=== PATIENT | female | born 1955 | race African-American/Black ===

== ENCOUNTER 2019-10-19 01:27 | Inpatient (IN) | payer MEDICAID ==
[~2019-10-19] VITALS: Ht 165.1 cm; Wt 101.4 kg
[2019-10-19] VITALS (11 sets, daily range): BP systolic 129–167; BP diastolic 70–89; BMI 40.0
--- NOTE | ~2019-10-19 | HEMODYNAMI ---
PATIENT:MITCH BENNETT MEDICAL RECORD: [id number] : 59 LOCATION:[facility] D.2111 ADMISSION DATE: 10/19/19 Generatedon:10/25/201914:41 Patient name: MITCH BENNETT Patient #: [id number] SSN: : 1955 Date of study: 10/25/2019 Page: Of Hemodynamic Procedure Report Patient Data Patient Demographics Procedure consent was obtained First Name: MITCH Gender: Female Last Name: DONALD : 1955 Patient #: [id number] Age: 63 year(s) Race: Black Additional ID: [id number] Contact details Address: [facility] [address] State: [place] City: [place] Zip code: [address] Past Medical History Allergies Allergen Reaction Date Comments Reported Other allergy 10/20/2019 NAPROXEN/STRAWBERRY Other allergy 10/25/2019 NAPROXEN, STRAWBERRY Admission Admission Data Admission Date: 10/19/2019 Admission Time: 2:02 Arrival Date: 10/20/2019 Arrival Time: 0:00 Room #: D.2111 Height (in.): 64.96 BSA: 2.1 (m2) Height (cm.): 165 BMI: 38.2 (kg/m2) Weight (lbs.): 229.28 Weight (kg.): 104 Lab Results Lab Result Date: 10/25/2019 Lab Result Time: 0:00 Biochemistry Name Units Result Min Max BUN mg/dl 15 --(--*-)-- 7 18 Creatinine mg/dl 1 --(--*-)-- 0.6 1.3 eGFR ml/min 72 *-(----)-- 90 120 AM CBC Name Units Result Min Max Hematocrit % 36.2 *-(----)-- 42 54 Hemoglobin g/dl 10.7 *-(----)-- 13.5 17.5 Procedure Procedure Types Cath Procedure Diagnostic Procedure KAREN Procedure Description Procedure Date Procedure Date: 10/25/2019 Procedure Start Time: 13:42 Procedure Staff Name Function Juan Mayorga MD Performing Physician Thao Ramachandran RT Monitor Rio Copeland RN Nurse Elsa Rogers Sampler First Kirby Bryan CRNA Additional personnel Procedure Data Cath Procedure Fluoroscopy Diagnostic fluoroscopy Total fluoroscopy Time: 0 time: 0 min min Diagnostic fluoroscopy Total fluoroscopy dose: 0 dose: 0 mGy mGy Estimated blood loss: 0 ml Procedure Complications No complications Hemodynamics Rest BSA: 2.1 (m2) HGB: 10.7 (g/dl) O2 Consumption: Estimated: 225.05 (ml/min) O2 Consumption indexed: Estimated:107.17 (ml/min/m) Heart Rate: 103 (bpm) Snapshots Pre Cath Intra NCS Post Cath Vital Signs Time Heart Resp SPO2 etCO2 NIBP (mmHg) Rhythm Pain Sedation Rate (ipm) (%) (mmHg) Status Level (bpm) 14:08:43 103 10 100 0 Measuring NSR (Missing) 10(A) 14:10:07 102 12 100 0 Time NSR (Missing) 10(A) Exceeded 14:15:06 100 12 100 0 Measuring NSR (Missing) 10(A) 14:16:30 99 13 100 0 Time NSR (Missing) 10(A) Exceeded 14:20:54 100 15 100 0 Time NSR (Missing) 10(A) Exceeded 14:25:53 100 13 100 0 Measuring NSR (Missing) 10(A) 14:27:17 101 13 100 0 Time NSR (Missing) 10(A) Exceeded 14:31:13 101 15 100 0 166/95(133) NSR (Missing) 10(A) 14:35:29 99 32 100 0 156/92(120) NSR (Missing) 10(A) 14:39:43 91 24 100 0 152/96(117) NSR (Missing) 10(A) Procedure Log Time Note 13:42:31 Informed consent obtained and on chart 13:42:58 Patient Weight : 229.28 lbs 13:42:58 Patient Height : 64.96 inches 13:43:00 Procedure Status KAREN. 13:43:02 Time tracking: Regular hours (M-F 7:00 - 5:00) 13:43:05 Plan of Care:Hemodynamics will remain stable., Cardiac rhythm will remain stable., Comfort level will be maintained., Respiratory function will remain adequate., Patient/ family verbilizes understanding of procedure., Procedure tolerated without complication., Recovers from procedure without complications.. 13:43:08 Rio Copeland RN sent for patient. Start room use. 14:01:05 Patient arrived from Med II to CCL 3. Patient remains on bed/stretcher for procedure. 14:01:07 Warm blankets applied, and goldy hugger turned on for patient comfort. 14:01:07 Correct patient and procedure confirmed by team. 14:01:08 ECG and BP/O2 sat monitors applied to patient. 14:06:54 Vital chart was started 14:06:57 Baseline sample Acquired. 14:07:13 Rhythm: sinus tachycardia 14:07:15 Full Disclosure recording started 14:07:16 Pre-procedure instructions explained to patient. 14:07:17 Pre-op teaching completed and patient verbalized understanding. 14:07:18 Family unavailable. 14:07:19 Patient NPO since Midnight. 14:07:35 Patient allergic to Other allergyNAPROXEN, STRAWBERRY 14:07:36 Is patient on blood thinner?Yes 14:07:46 ACC The patient was administered the following blood thiners within the last 24 hours: ACCPlavix 14:07:49 Patient diabetic? Yes. 14:07:50 If diabetic: On Metformin? No 14:07:53 Patient not . Patient is over age 57. 14:08:07 Previous problem with sedation/anesthesia? No ? 14:08:08 Snore? Yes 14:08:09 Sleep apnea? No 14:08:10 Deviated septum? No 14:08:11 Opens mouth fully? Yes 14:08:12 Sticks out tongue? Yes 14:08:15 Airway obstruction? Yes COPD 14:08:17 Dentures? No ? 14:08:22 IV patent on arrival in left hand with 0.9% NaCl at [facility]. 14:11:15 Lab Result : BUN 15 mg/dl 14:11:15 Lab Result : Creatinine 1 mg/dl 14:11:15 Lab Result : eGFR AM 72 ml/min 14:11:15 Lab Result : Hemoglobin 10.7 g/dl 14:11:15 Lab Result : Hematocrit 36.2 % 14:11:20 Lab results completed and on chart. 14:11:27 Alarms reviewed by Elsa Mullen 14:20:02 Kirby Bryan CRNA present and monitoring patient for TIVA. 14:28:13 --------ALL STOP TIME OUT------ 14:28:14 Final Timeout: patient, procedure, and site verified with staff and physician. All members of the team are in agreement. 14:28:21 Physical assessment completed. ASA score P 3 - A patient with severe systemic disease as per Juan Mayorga MD. 14:28:25 Sedation plan: TIVA Medication:Propofol 14::27 KAREN 14:29:30 Elsa Rogers Quality Control Lab Tech present for KAREN. 14:29:41 KAREN started. 14:36:40 KAREN completed. 14:36:45 Procedure ended.(Physican Out) 14:37:12 Fluoroscopy time 00.00 minutes. 14:37:14 Fluoroscopy dose: 0 mGy 14:37:14 Flurop Dose total: 0 14:38:30 Dose Area Product 0 mGy/cm. 14:38:42 Post-procedure physical assessment completed. ASA score P 3 - A patient with severe systemic disease as per Juan Mayorga MD. 14:38:45 Post procedure rhythm: sinus rhythm 14:38:47 Estimated blood loss: 0 ml 14:38:49 Post procedure instruction explained to patient.Patient verbalizes understanding. 14:38:49 Patient needs reinforcement of post procedure teaching. 14:39:47 Procedure and supply charges have been captured, reviewed, submitted and are correct. 14:39:50 Procedure Complication : No complications 14:39:51 Vital chart was stopped 14:39:53 KAREN Findings: other (see operative note) 14:39:54 Operative report dictated upon procedure completion. 14:39:55 See physician's report for complete and final results. 14:39:58 Report given to Med II. 14:40:03 Patient transfered to Med II with Bed. 14:40:08 End room use (Document Last) 14:40:29 End room use (Document Last) 14:40:52 End room use (Document Last) Signature Audit [place] Stage Time Signature Unsigned Intra-Procedure 10/25/2019 Thao Ramachandran 2:40:29 PM RT(R) Intra-Procedure 10/25/2019 Rio Copeland 2:40:53 PM RN Intra-Procedure 10/25/2019 Juan Calhoun 2:41:21 PM Steve [facility] [address] [place] [address]
--- NOTE | ~2019-10-19 | HEMODYNAMI ---
PATIENT:MITCH BENNETT MEDICAL RECORD: [id number] : 59 LOCATION:[facility] D.2111 ADMISSION DATE: 10/19/19 Generatedon:10/20/20199:54 Patient name: MITCH BENNETT Patient #: [id number] SSN: DO B: 1955 Date of study: 10/20/2019 Page: Of Hemodynamic Procedure Report Patient Data Patient Demographics Procedure consent was obtained First Name: MITCH Gender: Female Last Name: DONALD : 1955 Patient #: [id number] Age: 63 year(s) Race: Black Additional ID: [id number] Contact details [facility] [address] State: [place] City: [place] Zip code: [address] Past Medical History Allergies Allergen Reaction Date Comments Reported Other allergy 10/20/2019 NAPROXEN/STRAWBERRY Admission Admission Data Admission Date: 10/19/2019 Admission Time: 2:02 Arrival Date: 10/20/2019 Arrival Time: 0:00 Room #: D.2111 Height (in.): 64.96 BSA: 2.17 (m2) Height (cm.): 165 BMI: 41.51 (kg/m2) Weight (lbs.): 249.12 Weight (kg.): 113 Lab Results Lab Result Date: 10/20/2019 Lab Result Time: 0:00 Biochemistry Name Units Result Min Max BUN mg/dl 23 --(----)-* 7 18 CK-MB ng/ml 2.3 --(--*-)-- 0 3.6 Creatinine mg/dl 1.5 --(----)-* 0.6 1.3 Creatinine l 110 --(-*--)-- 21 215 Kinase eGFR ml/min 45 *-(----)-- 90 120 AM Troponin l ng/ml 0.309 --(----)-* 0 0.06 CBC Name Units Result Min Max Hematocrit % 36 *-(----)-- 42 54 Hemoglobin g/dl 10.5 *-(----)-- 13.5 17.5 Procedure Procedure Types Cath Procedure Diagnostic Procedure [facility] w/Coronaries Sedation Charges Moderate Sedation up to 30 minutes Procedure Description Procedure Date Procedure Date: 10/20/2019 Procedure Start Time: 9:34 Procedure End Time: 9:51 Procedure Staff Name Function Carlos Shields MD Performing Physician Rama Scott RT Monitor Lima Gunter RT Scrub Manjit Silva RN Nurse Procedure Data Cath Procedure Fluoroscopy Diagnostic fluoroscopy Total fluoroscopy Time: 2.1 time: 2.1 min min Diagnostic fluoroscopy Total fluoroscopy dose: 701 dose: 701 mGy mGy Contrast Material Contrast Material Type Amount (ml) Isovue 300 40 Entry Location Entry Primary Successful Side Size Upsize Upsize Entry Closure Succes sful Closure Location (Fr) 1 (Fr) 2 (Fr) Remarks Device Remarks Femoral Right 5 Fr Exoseal artery Estimated blood loss: 5 ml Diagnostic catheters Device Type Used For End Catheter Placement MULTIPACK JL 4.0 5Fr Left Coronary catheter Angiography MULTIPACK 3DRC 5Fr Right Coronary catheter Angiography MULTIPACK Pigtail 5 Fr LV Angiography catheter Procedure Complications No complications Procedure Medications Medication Administration Route Dosage 0.9% NaCl I.V. 100 ml/hr Oxygen etCO2 Nasal cannula 2 l/min Heparin Flush Bag added to field 2 bags (1000units/500ml NS) Lidocaine 2% added to field 20 Versed I.V. 1 mg Fentanyl I.V. 25 mcg Hemodynamics Rest BSA: 2.17 (m2) HGB: 10.5 (g/dl) O2 Consumption: Estimated: 212.67 (ml/min) O2 Co nsumption indexed: Estimated:98 (ml/min/m) Heart Rate: 79 (bpm) Pressure Samples Time Site Value (mmHg) Purpose Heart Use Rate(bpm) 9:44 LV 152/6,31 Snapshot 80 Gradients Valve Time Site Site Mean SEP/DFP Peak To Heart Use 1 2 (mmHg) (sec/min) Peak Rate (mmHg) (bpm) Aortic 9:45 LV AO 77 Snapshots Pre Cath Intra NCS Post Cath Vital Signs Time Heart Resp SPO2 etCO2 NIBP (mmHg) Rhythm Pain Sedation Rate (ipm) (%) (mmHg) Status Level (bpm) 9:19:18 80 14 100 39.1 143/89(121) NSR 0 (11) 10(A) , No pain 9:23:34 79 15 100 36.8 142/83(111) NSR 0 (11) 10(A) , No pain 9:27:48 79 17 100 36.8 142/86(119) NSR 0 (11) 10(A) , No pain 9:32:00 80 12 100 28.5 145/91(123) NSR 0 (11) 10(A) , No pain 9:36:14 79 14 100 36.8 145/88(114) NSR 0 (11) 9(A) , No pain 9:40:30 77 12 100 38.3 142/84(128) NSR 0 (11) 9(A) , No pain 9:45:45 78 13 100 39.1 136/80(116) NSR 0 (11) 10(A) , No pain 9:49:59 77 8 100 39.1 137/92(116) NSR 0 (11) 10(A) , No pain Medications Time Medication Route Dose Verified Delivered Reason Notes Effe ctiveness by by 9:21:23 0.9% NaCl I.V. 100 Manjit Manjit Per ml/hr Ricardo Silva physician RN RN 9:21:31 Oxygen etCO2 2 Manjit Manjit for low 02 Nasal l/min Lorigan Lorigan sats cannula RN RN 9:21:41 Heparin Flush added 2 Manjit Manjit used for Bag to bags Lorigan Lorigan procedure (1000units/500ml field RN RN NS) 9:21:51 Lidocaine 2% added 20ml Manjit Manjit for local to vial Lorigan Lorigan anesthetic field RN RN 9:31:23 Versed I.V. 1 mg Manjit Manjit for Lorigan Lorigan sedation RN RN 9:31:32 Fentanyl I.V. 25 Manjit Manjit for mcg Lorigan Lorigan sedation RN market research assistant Log Time Note 7:48:20 Informed consent obtained and on chart 8:00:11 Procedure Status Urgent Heart Cath (IP). 8:00:16 Time tracking: Regular hours (M-F 7:00 - 5:00) 8:01:58 Lab Result : CK-MB 2.3 ng/ml 8:01:58 Lab Result : Creatinine 1.5 mg/dl 8:01:58 Lab Result : BUN 23 mg/dl 8:58 Lab Result : Hemoglobin 10.5 g/dl 8:58 Lab Result : Hematocrit 36 % 8:58 Lab Result : eGFR AM 45 ml/min 8:58 Lab Result : Creatinine Kinase 110 l 8:58 Lab Result : Troponin l 0.309 ng/ml 8:04:19 Patient Height : 64.96 inches 8:04:24 Patient Weight : 249.12 lbs 8:04:38 Arrival Date: 10/20/2019 12:00:00 AM 8:09:57 Risk of Mortality: 1.1 8:10:02 Risk of blood transfusion: 7.7 8:10:09 Risk of MARYANN: 3.6 8:10:15 Lab results completed and on chart. 8:26:33 Patient allergic to Other allergyNAPROXEN/STRAWBERRY 8:55:33 Manjit Silva RN sent for patient. Start room use. 8:55:42 Plan of Care:Hemodynamics will remain stable., Cardiac rhythm will remain stable., Comfort level will be maintained., Respiratory function will remain adequate., Patient/ family verbilizes understanding of procedure., Procedure tolerated without complication., Recovers from procedure without complications.. 9:17:23 Patient received from Med II to CCL 1 Alert and oriented. Tansferred to table in Supine position. 9:17:24 Warm blankets applied, and goldy hugger turned on for patient comfort. 9:17:25 Correct patient and procedure confirmed by team. 9:17:27 ECG and BP/O2 sat monitors applied to patient. 9:17:33 H&P Date Dictated: 10/19/2019 ER History on chart.. 9:17:42 Pre-procedure instructions explained to patient. 9:17:43 Pre-op teaching completed and patient verbalized understanding. 9:17:47 Is patient on blood thinner?Yes 9:17:49 ACC The patient was administered the following blood thiners within the last 24 hours: ACCPlavix 9:17:50 Patient diabetic? No. 9:17:53 Patient not . Patient is over age 57. 9:17:59 Patient NPO since Midnight. 9:18:04 Family unavailable. 9:18:09 Previous problem with sedation/anesthesia? No ? 9:18:10 Snore? Yes 9:18:11 Vital chart was started 9:18:12 Sleep apnea? No 9:18:14 Deviated septum? No 9:18:15 Opens mouth fully? Yes 9:18:16 Sticks out tongue? Yes 9:18:19 Airway obstruction? Yes COPD 9:18:27 Dentures? No OUT 9:18:40 Pre procedure: right dorsailis pedis pulse 1+ Palpable, but thready & weak; easily obliterated 9:18:53 IV patent on arrival in right antecubital with 0.9% NaCl at [facility]. 9:18:57 Right Radial & Right Groin area was prepped with chlora-prep and draped in sterile fashion 9:18:59 Alarms reviewed by RSanjay N. 9:19:00 Sharps counted by scrub and verified by RSanjayN. 9:20:20 Full Disclosure recording started 9:20:28 Rhythm: sinus rhythm 9:21:23 0.9% NaCl 100 ml/hr I.V. was administered by Manjit Silva RN; Per physician; Verbal order read back and verified. 9:21:31 Oxygen 2 l/min etCO2 Nasal cannula was administered by Manjit Silva RN; for low 02 sats; Verbal order read back and verified. 9:21:41 Heparin Flush Bag (1000units/500ml NS) 2 bags added to field was administered by Manjit Silva RN; used for procedure; Verbal order read back and verified. 9:21:51 Lidocaine 2% 20ml vial added to field was administered by Manjit Silva RN; for local anesthetic; Verbal order read back and verified. 9:26:29 Baseline sample Acquired. 9:27:03 Use device set Radial Dx or PCI 9:27:05 ACIST Syringe (60206) opened to sterile field. 9:27:06 Medline Cath Pack ([id number]) opened to sterile field. 9:27:07 Bag Decanter (2002) opened to sterile field. 9:27:08 ACIST Hand Control (22538) opened to sterile field. 9:27:09 ACIST Manifold (83948) opened to sterile field. 9:27:10 Tegaderm 4 x 4 (1626W) opened to sterile field. 9:27:11 MBrace Wrist Support ([id number]) opened to sterile field. 9:27:14 EMERALD Guide Wire (847-648) opened to sterile field. 9:27:15 SHEATH 6FR RAIN ([id number]) opened to sterile field. 9:30:29 Physician arrived 9:30:30 --------ALL STOP TIME OUT------ 9:30:34 Final Timeout: patient, procedure, and site verified with staff and physician. All members of the team are in agreement. 9:30:37 Right Radial & Right Groin site verified by team. 9:30:42 Fire Safety Assessment: A--An alcohol-based skin anteseptic being used preoperatively., C--Open oxygen or nitrous oxide is being used., D--An ESU, laser, or fiber-optic light is being used. 9:30:47 Physical assessment completed. ASA score P 2 - A patient with mild systemic disease as per Carlos Shields MD. 9:30:52 3a) 45-59 Moderately reduced kidney function. 9:30:57 Maximum allowable contrast dose (3.7 X eGFR X 0.75)125 ml. 9:31:03 Sedation plan: IV Moderate Sedation Medication:Versed, Fentanyl 9:31:23 Versed 1 mg I.V. was administered by Manjit Silva RN; for sedation; Verbal order read back and verified. 9:31:32 Fentanyl 25 mcg I.V. was administered by Manjit Silva RN; for sedation; Verbal order read back and verified. 9:31:34 Zero performed for pressure channel P1 9:33:24 Procedure started. 9:34:21 Local anesthetic to right femoral artery with Lidocaine 2% by Carlos Shields MD.INITIAL ACCESS ONLY 9:34:34 SHEATH 5FR [place] ([id number]) opened to sterile field. 9:35:46 Use device set Multipack Set 9:35:50 DIAGNOSTIC Multipack 5Fr catheter set ([id number]) opened to sterile field. 9:36:41 MICROPUNCTURE 4FR Cook ([id number]) opened to sterile field. 9:36:57 Access obtained with 4Fr micropunture. 9:37:58 A 5 Fr sheath was inserted into the Right Femoral artery 9:38:12 A MULTIPACK JL 4.0 5Fr catheter was advanced over the wire and used for Left Coronary Angiography. 9:38:55 LCA angiography performed. 9:39:03 Injector settings: Ml/sec: 3, Volume: 6, 9:40:29 Catheter removed. 9:40:40 A MULTIPACK 3DRC 5Fr catheter was advanced over the wire and used for Right Coronary Angiography. 9:40:45 Injector settings: Ml/sec: 3, Volume: 6, 9:41:14 RCA angiography performed. 9:42:27 Catheter removed. 9:42:42 A MULTIPACK Pigtail 5 Fr catheter was advanced over the wire and used for LV Angiography. 9:43:26 LV gram done using FROST 9:43:38 Injector settings: Ml/sec: 12, Volume: 8, 9:44:27 LV hemodynamics recorded. 9:45:13 EF : 40 % 9:45:19 Catheter removed. 9:45:35 EXOSEAL 5Fr (EX500) opened to sterile field. 9:46:29 Sheath removed intact; hemostasis achieved with Exoseal to the Right Femoral artery. 9:46:35 Procedure ended.(Physican Out) 9:46:44 Contrast amount:Isovue 300 40ml. 9:46:55 Maximum allowable dose exceeded? No. 9:46:57 Sharps counted by scrub and verified by R.N. 9:47:07 Fluoroscopy time 02.10 minutes. 9:47:17 Fluoroscopy dose: 701 mGy 9:47:17 Flurop Dose total: 701 9:47:29 Dose Area Product 93569 mGy/cm. 9:47:40 Post-op/insertion site Right Femoral artery dressed using a 4 x 4 and Tegaderm. 9:47:54 Post right femoral artery:stable 9:48:01 Post-procedure physical assessment completed. ASA score P 2 - A patient with mild systemic disease as per Carlos Shields MD. 9:48:06 Post procedure rhythm: unchanged. 9:48:11 Estimated blood loss: 5 ml 9:48:15 Post procedure instruction explained to patient.Patient verbalizes understanding. 9:48:15 Patient needs reinforcement of post procedure teaching. 9:49:04 Procedure type changed to Cath procedure, Diagnostic procedure, LHC, LHC w/Coronaries, Sedation Charges, Moderate Sedation up to 30 minutes 9:49:07 Procedure and supply charges have been captured, reviewed, submitted and are correct. 9:50:59 Procedure Complication : No complications 9:51:02 Vital chart was stopped 9:51:16 [facility] Findings: MVD- CABG consult 9:51:21 Operative report dictated upon procedure completion. 9:51:22 See physician's report for complete and final results. 9:51:25 Report given to [facility] II. 9:51:31 Patient transfered to [facility] II with Bed. 9:51:35 Procedure ended. 9:51:35 Full Disclosure recording stopped Device Usage Item Name Manufacture Quantity Catalog Hospital Part Current Mini mal Lot# / Number Charge Number Stock Stock Serial# Code ACIST Syringe Acist 1 07418 566145 [id number] [id number] 20 (55847) Medical Systems Inc Medline Cath Medline 1 [id number] 318336 58841 290877 5 Pack ([id number]) Bag Decanter Microtek 1 2001S 867657 48776 897578 5 (2001S) Medical Inc. ACIST Hand Acist 1 91386 250708 904065 696965 5 Control Medical (09073) Systems Inc ACIST Acist 1 67091 758858 472002 284086 5 Manifold Medical (26105) Systems Inc Tegaderm 4 x 3M 1 1626W 278431 392141 939404 5 4 (1626W) MBrace Wrist Advanced 1 140-0250-00 352016 68448 489267 5 Support Vascular ([id number]) Dynamics EMERALD Guide Cardinal 1 502-455 383300 435150 361854 5 [facility] (502-455) SHEATH 6FR Cardinal 1 0999622 164389 6864758 928621 5 [facility] (7177213) SHEATH 5FR Terumo 1 HEL545 329248 770784 341317 5 [place] (PCQ438) DIAGNOSTIC Cardinal 1 IR8050 176869 20189 006242 30 Multipack 5Fr Health catheter set (EU4542) MICROPUNCTURE Cook Medical 1 Q76501 861642 990602 389381 5 4FR Cook (B85429) MULTIPACK JL Cardinal 1 703816 5 4.0 5Fr Health catheter MULTIPACK Cardinal 1 773539 5 3DRC 5Fr Health catheter MULTIPACK Cardinal 1 105737 5 Pigtail 5 Fr Health catheter EXOSEAL 5Fr Cardinal 1 EX500 696165 505687 943893 10 (EX500) Health Signature Audit [place] Stage Time Signature Unsigned Intra-Procedure 10/20/2019 Rama 9:52:05 AM Tyler RT(R) (CV) Intra-Procedure 10/20/2019 Manjit 9:52:46 AM Ricardo RN Intra-Procedure 10/20/2019 Carlos Shields MD 9:54:12 AM Signatures Performing Physician : Signature : Carlos Shields MD Date : Time : Monitor : Rama Signature : Tyler RT Date : Time : Nurse : Manjit Silva Signature : RN Date : Time : [address] [place] [address]
--- NOTE | 2019-10-19 01:42 | NUR ---
FSBS 156
[2019-10-19 01:54] LABS: BASOPHILS 0.2 % (0-2); EOSINOPHILS 0.2 % (0-7); HEMOGLOBIN 10.5 g/dL (12-16); IMMATURE GRANULOCYTES 0.2 % (0-5); LYMPHOCYTES 15.8 % (15-50); MCH 26.9 pg (26.0-34.0); MCHC 29.2 g/dL (31.0-37.0); MCV 92.3 fL (80.0-100.0); MONOCYTES 11.3 % (2-11); NEUTROPHILS 72.3 % (40-80); PLATELET COUNT 217 10x3/uL (130-400); RDW 15.6 % (11.5-14.5); WBC 4.7 10x3/uL (4.8-10.8)
[2019-10-19 02:08] LABS: APTT 28.7 SECONDS (22.8-39.4); INR 1.22 (0.85-1.17); PROTIME 15.4 SECONDS (11.6-15.0)
[2019-10-19 02:19] LABS: CALC OSMOLALITY 282 mosm/kg (275-300); CALCIUM 8.9 mg/dL (8.5-10.1); CARBON DIOXIDE 27.3 mmol/L (21.0-32.0); CHLORIDE - SERUM 101 mmol/L (98-107); CREATININE - SERUM 1.5 mg/dL (0.6-1.3); GLUCOSE 153 mg/dL (74-106); POTASSIUM - SERUM 4.6 mmol/L (3.5-5.1); SODIUM 138 mmol/L (136-145); UREA NITROGEN 23 mg/dL (7-18); eGFR NON AFRICAN AMERICAN 37 mL/min (90-120)
[2019-10-19 02:40] LABS: ALBUMIN 3.5 g/dL (3.4-5.0); ALKALINE PHOSPHATASE 166 U/L (30-120); ALT (SGPT) 44 U/L (10-68); BILIRUBIN - TOTAL 0.55 mg/dL (0.2-1.3); CKMB 2.3 U/L (0.0-3.6); CREATINE KINASE 110 UL (21-215); PRO BNP 5138 pg/mL (0-125); PROTEIN - SERUM 6.9 g/dL (6.4-8.2)
[2019-10-19 02:43] LABS: TROPONIN-I 0.309 ng/mL (0.000-0.060)
--- NOTE | 2019-10-19 03:31 | NUR ---
RESTING WITH EYES CLOSED RESP EVEN AND UNLABORED. DENIES ANY CHEST PAIN SINCE ARRIVAL
--- NOTE | 2019-10-19 07:09 | NUR ---
ASSUMED CARE OF PT. A/OX3. SKIN W/D/P. DENIES CP. RESP EVEN/UNLABORED.
--- NOTE | 2019-10-19 07:10 | NUR ---
WHILE ASSESSING PT PT REPORTED "SOMEONE TOOL $50 OUT OF MY PURSE BEFORE I GOT HERE. I THINK IT WAS THE AMBULANCE PEOPLE" PURSE LYING IN BED NEXT TO PT. I ASKED PT IF SHE REPORTED INCIDNET AND SHE REPLIED "NO" OFFERED TO CALL [facility] AND EMS AND REPORT AND SHE STATES "NO, I JUST KNOW SOMEONE TOOK IT"
--- NOTE | 2019-10-19 07:15 | NUR ---
VUMH=438 MG/DL
[2019-10-19 10:00] LABS: CKMB 2.4 U/L (0.0-3.6); CREATINE KINASE 109 UL (21-215)
[2019-10-19 10:05] LABS: TROPONIN-I 0.253 ng/mL (0.000-0.060)
--- NOTE | 2019-10-19 10:15 | NUR ---
THIS RN ENTERS PT ROOM TO TRANSPORT TO FLOOR FOR ADMISSION, PT STATES SHE HAS $50 MISSING FROM HER HOUSE. STATES SHE IS CONVINCED THAT EMS STOLE HER $50. PT THEN ASKS THIS RN TO PLACE HER GLASSES AND PHONE IN HER PURSE. THIS NURSE DECLINES AND OFFERS TO HAND PT HER PURSE FOR HER TO PLACE ITEMS IN. PT STATES SHE JUST WANTS THIS RN TO PLACE HER PHONE AND GLASSES IN HER PURSE. THIS RN HANDS PT HER PURSE FOR PT TO PLACE ITEMS IN. PT EXPRESSES GRATITUDE.
[2019-10-19] MEDS ORDERED: LASIX40 MG PO (10:40)
[2019-10-19] MEDS ORDERED: POTASSIUM CHLO10 ME1 PO (10:41)
[2019-10-19] MEDS ORDERED: LIPITOR20 MG PO (10:41)
[2019-10-19] MEDS ORDERED: HYDROCODON-ACE1 EA10 PO (10:42)
[2019-10-19] MEDS ORDERED: LEVEMIR FL100 UNIT/1 SC (10:42)
[2019-10-19] MEDS ORDERED: COZAAR50 MG PO (10:43)
[2019-10-19] MEDS ORDERED: PLAVIX75 MG PO (10:43)
[2019-10-19] MEDS ORDERED: KEFLEX500 MG PO (10:44)
[2019-10-19] MEDS ORDERED: CYCLOBENZAPRINE10 MG PO (10:44)
[2019-10-19] MEDS ORDERED: HUMULIN N100 U/ML (10:46)
--- NOTE | 2019-10-19 10:47 | NUR ---
PT STATES SHE DOESN'T KNOW WHAT ALL MEDS SHE TAKES BUT TO CALL [facility] IN [place]. CALLED AND SPOKE WITH PHARMACY AND GOT PT'S MED LIST OVER THE PHONE. PT STATES SHE HASN'T BEEN ABLE TO TAKE ANY MEDICATIONS IN FIVE DAYS BECAUSE SHE HAS BEEN SO SICK. I VERBALIZED UNDERSTANDING. 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 CONSULT FOR DR. GIVOANNI HALL.
[2019-10-19 14:34] LABS: CKMB 2.6 U/L (0.0-3.6); CREATINE KINASE 112 UL (21-215)
[2019-10-19 14:36] LABS: TROPONIN-I 0.242 ng/mL (0.000-0.060)
--- NOTE | 2019-10-19 17:00 | NUR ---
HEART CATH CONSENTS SIGNED.
--- NOTE | 2019-10-19 18:50 | NUR ---
SCD'S PLACED BILATERLLY ON PT'S LEGS.
--- NOTE | 2019-10-19 19:00 | NUR ---
REPORT RECEIVED, WILL CONTINUE POC. PATIENT IS AAOX4, SITTING UP EATING DINNER. NO S/S OF DISTRESS OBSERVED, RR EVEN AND UNLABORED ON 2L O2 VIA NC. PATIENT DENIES NEEDS AT THIS TIME. CL IN REACH, BED LOCKED AND LOWERED. WILL CTM.
[2019-10-19 20:39] LABS: CKMB 2.4 U/L (0.0-3.6); CREATINE KINASE 115 UL (21-215)
[2019-10-19 20:41] LABS: TROPONIN-I 0.185 ng/mL (0.000-0.060)
[2019-10-20] VITALS: BP 128/66
--- NOTE | 2019-10-20 03:53 | NUR ---
I have reviewed this patient and I concur with the Shift Assessment completed by the Licensed Practical Nurse today this shift.
[2019-10-20 04:00] VITALS: BP 134/72
[2019-10-20 08:11] LABS: BASOPHILS 0.5 % (0-2); EOSINOPHILS 2.1 % (0-7); HEMOGLOBIN 10.5 g/dL (12-16); LYMPHOCYTES 24.7 % (15-50); MCH 26.9 pg (26.0-34.0); MCHC 29.2 g/dL (31.0-37.0); MCV 92.1 fL (80.0-100.0); MEAN PLATELET VOLUME 9.7 fL (7.4-10.4); MONOCYTES 12.4 % (2-11); NEUTROPHILS 60.3 % (40-80); PLATELET COUNT 199 10x3/uL (130-400); RBC 3.91 10x6/uL (4.00-5.40); RDW 15.9 % (11.5-14.5); WBC 3.9 10x3/uL (4.8-10.8)
[2019-10-20 08:43] LABS: ALBUMIN 3.2 g/dL (3.4-5.0); ANION GAP 13.3 mmol/L (8-16); BILIRUBIN - TOTAL 0.44 mg/dL (0.2-1.3); CALCIUM 8.7 mg/dL (8.5-10.1); CARBON DIOXIDE 27.1 mmol/L (21.0-32.0); CREATININE - SERUM 1.8 mg/dL (0.6-1.3); MAGNESIUM - SERUM 2.1 mg/dL (1.8-2.4); POTASSIUM - SERUM 4.4 mmol/L (3.5-5.1); PROTEIN - SERUM 6.5 g/dL (6.4-8.2)
[2019-10-20 09:00] VITALS: BP 142/79
[2019-10-20 11:00] VITALS: BP 153/61
[2019-10-20 13:13] VITALS: BMI 41.4
--- NOTE | 2019-10-20 19:11 | NUR ---
REPORT RECEIVED AND ROUNDING COMPLETE. PATIENT LAYING IN LOW FOWLERS POSITION, PATIENT WORRIED ABOUT OPEN HEART SURGERY, DAY NURSE UNAWARE, WILL READ INTO CHART. RIGHT WRIST PIV THAT IS SALINE LOCKED AT THIS TIME, CATH TO THE RIGHT GROIN TODAY, DRESSWING C/D/I. PATIENT STATES SHE HAS NO NEEDS AT THIS TIME. CALL LIGHT WITHIN REACH AND BED IN LOWEST LOCKED POSITION. NO DISTRESS NOTED AT THIS TIME.
[2019-10-20 20:00] VITALS: BP 123/66
[2019-10-21] VITALS: BP 147/68
[2019-10-21 04:00] VITALS: BP 138/60
[2019-10-21 06:54] LABS: BASOPHILS 0.2 % (0-2); EOSINOPHILS 2.4 % (0-7); HEMATOCRIT 33.7 % (36.0-48.0); HEMOGLOBIN 10.1 g/dL (12-16); MCH 27.5 pg (26.0-34.0); MCV 91.8 fL (80.0-100.0); MEAN PLATELET VOLUME 9.9 fL (7.4-10.4); NEUTROPHILS 74.4 % (40-80); PLATELET COUNT 220 10x3/uL (130-400); RBC 3.67 10x6/uL (4.00-5.40); RDW 15.7 % (11.5-14.5); WBC 4.9 10x3/uL (4.8-10.8)
[2019-10-21 07:33] LABS: ALBUMIN 3.1 g/dL (3.4-5.0); ANION GAP 8.5 mmol/L (8-16); BILIRUBIN - TOTAL 0.39 mg/dL (0.2-1.3); CALCIUM 8.3 mg/dL (8.5-10.1); CARBON DIOXIDE 30.4 mmol/L (21.0-32.0); CREATININE - SERUM 1.4 mg/dL (0.6-1.3); POTASSIUM - SERUM 3.9 mmol/L (3.5-5.1); PROTEIN - SERUM 6.3 g/dL (6.4-8.2)
[2019-10-21 08:00] VITALS: BP 131/73
--- NOTE | 2019-10-21 09:52 | EC ---
PATIENT:MITCH BENNETT DATE OF SERVICE: 10/19/19 SEX: F MEDICAL RECORD: [id number] DATE OF : 59 LOCATION:D.M2 D.211 AGE OF PATIENT: 63 ADMISSION DATE: 10/19/19 REFERRING PHYSICIAN: INTERPRETING PHYSICIAN: ARTEMIO MEADOWS MD ECHOCARDIOGRAM REPORT ECHO CHARGES 4 ECHO COMPLETE Date: 10/19/19 CLINICAL DIAGNOSIS: DYSPNEA ECHOCARDIOGRAPHIC MEASUREMENTS (adult normal given) AC root (d.<3.7cm) 2.8 cm LV Septum d (<1.2 cm> 0.7 cm Valve Excursion 1.8 cm LV Septum (systole) 0.9 cm Left Atria (s.<4.0cm> 4.3 cm LVPW d(<1.2cm) 1.1 cm RV (d.<2.3cm) 3.1 cm LVPW (sytole) 1.2 cm LV diastole(<5.6CM) 5.6 cm MV E-F(>70mm/sec) cm LV systole 4.9 cm LVOT Diameter 1.6 cm MV exc.(>10mm) cm Est.ejection fraction (50-75%) % DOPPLER: LVIT cm/sec A 44 cm/sec E 114 cm/sec LA cm/sec RVSP 43.6 mmHg LVOT 78 cm/sec AOP1/2T m/s Asc. Ao 113 cm/sec RVOT 58 cm/sec RA cm/sec PA 78 cm/sec AV Gradient Peak 5.1 mmHg AV Mean 3.0 mmHg AV Area 1.6 cm MV Gradient Peak 7.0 mmHg MV Mean 3.1 mmHg MV Area cm COMMENTS: Senior It Specialist: Christoph BOURGEOIS Bobbin Handler: 3 Dr. Elena TAPE# Pericardial Effusion N DATE OF SERVICE: PROCEDURE: Transthoracic echocardiogram. FINDINGS: 1. The left ventricle shows a dilated left ventricle, ejection fraction of 25% to 30%. 2. The left atrium is afotetkh-vq-iazoprne dilated. 3. The aortic valve appears to be grossly normal. 4. The mitral valve has at least moderate regurgitation, but was not well ECHOCARDIOGRAM REPORT [id number] MITCH BENNETT demonstrated. 5. The right ventricular systolic pressure is elevated at 50 mmHg. 6. The right ventricle is dilated with mild hypokinesis. 7. The right atrium is severely dilated. 8. The pulmonic valve is grossly normal, but not well visualized. TRANSINT:[id number] Voice Confirmation ID: [id number] DOCUMENT ID: [id number] ARTEMIO MEADOWS MD at 0952 CC: [id number] DICTATION DATE: 10/20/19 0742 REVIEW SPECIALIST: 10/20/19 0853 ADM IN [facility] [address] [id number]
[2019-10-21 11:00] VITALS: BP 148/73
[2019-10-21 15:00] VITALS: BP 144/56; Ht 165.1 cm; Wt 101.4 kg
--- NOTE | 2019-10-21 19:09 | NUR ---
REPORT RECEIVED AND ROUNDING COMPLETE. PATIENT LAYING IN BED ON LEFT SIDE, EASILY AROUSED WHEN ENTERING ROOM. LEILA NOT WEARING NASAL CANNULA AT THIS TIME, LEILA STATES THAT SHE HAS NO NEEDS. LEFT FOREARM PIV THAT IS SALINE LOCKED. LEILA COMPLAINS OF MILD DISCOMFORT IN RIGHT GREAT TOE, THIS TOE IS AMPUTATED, WHEN TREAT PER MAR REQUESTED WIHT NIGHT TIME MEDICATIONS. NO S/SX OF DISTRESS AT THIS TIME. CALL LIGHT WITHIN REACH AND BED IN LOWEST LOCKED POSITION.
[2019-10-21 20:54] VITALS: BP 153/72
[2019-10-22 00:48] VITALS: BP 170/90
[2019-10-22 04:46] VITALS: BP 142/74
[2019-10-22 05:13] LABS: BASOPHILS 0.3 % (0-2); EOSINOPHILS 3.7 % (0-7); HEMATOCRIT 35.1 % (36.0-48.0); HEMOGLOBIN 10.3 g/dL (12-16); LYMPHOCYTES 26.9 % (15-50); MCHC 29.3 g/dL (31.0-37.0); MCV 91.9 fL (80.0-100.0); MEAN PLATELET VOLUME 9.3 fL (7.4-10.4); MONOCYTES 19.5 % (2-11); NEUTROPHILS 49.6 % (40-80); PLATELET COUNT 178 10x3/uL (130-400); RBC 3.82 10x6/uL (4.00-5.40); RDW 15.5 % (11.5-14.5)
[2019-10-22 05:17] LABS: WBC 3.5 10x3/uL (4.8-10.8)
[2019-10-22 05:26] LABS: ALBUMIN 2.8 g/dL (3.4-5.0); ANION GAP 7.8 mmol/L (8-16); BILIRUBIN - TOTAL 0.32 mg/dL (0.2-1.3); CALCIUM 8.4 mg/dL (8.5-10.1); CARBON DIOXIDE 31.1 mmol/L (21.0-32.0); POTASSIUM - SERUM 3.9 mmol/L (3.5-5.1); PROTEIN - SERUM 6.4 g/dL (6.4-8.2)
--- NOTE | 2019-10-22 10:22 | NUR ---
PT ALERT X 4. BREATH SOUNDS DIMINISHED TO ALL GUY. IV TO LEFT WRIST SALINE LOCKED. BOWEL SOUNDS HYPOACTIVE TO ALL GUY. PT REPORTING PAIN OF 6/10, WILL CONTINUE TO MONITOR. RIGHT GREAT TOE AMPUTATED, 2ND TOE HAS SORE ON IT. BED LOW, CALL LIGHT IN REACH. NO OTHER NEEDS AT THIS TIME
[2019-10-22 10:58] VITALS: BP 116/57
[2019-10-22 15:27] VITALS: BP 144/80
--- NOTE | 2019-10-22 19:53 | NUR ---
REPORT RECEIVED AND ROUNDING COMPLETE. PATIENT SITTING ON THE SIDE OF HER BED, STATES SHE IS FEELING A LITTLE BETTER TODAY AFTER HER SHOWERS. PATIENT IS TALKING ON HER CELL PHONE. NO DISTRESS NOTED AT THIS TIME. CALL LIGHT WITHIN REACH.
[2019-10-22 20:47] VITALS: BP 132/66
[2019-10-23 04:30] VITALS: BP 135/74
[2019-10-23 05:59] LABS: BASOPHILS 0.3 % (0-2); HEMATOCRIT 37.5 % (36.0-48.0); HEMOGLOBIN 11.1 g/dL (12-16); LYMPHOCYTES 30.2 % (15-50); MCH 27.2 pg (26.0-34.0); MCHC 29.6 g/dL (31.0-37.0); MCV 91.9 fL (80.0-100.0); MEAN PLATELET VOLUME 9.8 fL (7.4-10.4); MONOCYTES 15.8 % (2-11); NEUTROPHILS 49.7 % (40-80); RBC 4.08 10x6/uL (4.00-5.40); RDW 15.2 % (11.5-14.5); WBC 3.5 10x3/uL (4.8-10.8)
[2019-10-23 06:19] LABS: PLATELET COUNT 218 10x3/uL (130-400)
[2019-10-23 06:33] LABS: ALBUMIN 2.9 g/dL (3.4-5.0); ANION GAP 6.5 mmol/L (8-16); BILIRUBIN - TOTAL 0.4 mg/dL (0.2-1.3); CALCIUM 8.7 mg/dL (8.5-10.1); CARBON DIOXIDE 31.4 mmol/L (21.0-32.0); CREATININE - SERUM 1.1 mg/dL (0.6-1.3); POTASSIUM - SERUM 3.9 mmol/L (3.5-5.1); PROTEIN - SERUM 6.8 g/dL (6.4-8.2)
[2019-10-23 09:17] VITALS: BP 158/79
[2019-10-23 12:08] VITALS: BP 140/65
[2019-10-23 17:11] VITALS: BP 144/54
--- NOTE | 2019-10-23 19:47 | NUR ---
RECIEVED UP IN BED WITH EYES OPEN AND TV ON. ALERT AND ORIENTED X4. UP AD BIBI TO B/R. HEMO SPLIT TO RT GROIN WITH DSG INTACT. TELEMETRY IN PLACE. IV TO RT WRIST SL. NOT WEARING SCD'S AT THIS TIME. DENIES ANY NEEDS.
[2019-10-23 20:30] VITALS: BP 138/61
[2019-10-24 00:30] VITALS: BP 126/54
[2019-10-24 04:36] VITALS: BP 106/54
[2019-10-24 05:19] LABS: BASOPHILS 0.3 % (0-2); EOSINOPHILS 3.7 % (0-7); HEMATOCRIT 36.6 % (36.0-48.0); HEMOGLOBIN 10.8 g/dL (12-16); IMMATURE GRANULOCYTES 0.3 % (0-5); LYMPHOCYTES 31.7 % (15-50); MCH 27.2 pg (26.0-34.0); MCHC 29.5 g/dL (31.0-37.0); MCV 92.2 fL (80.0-100.0); MEAN PLATELET VOLUME 9.5 fL (7.4-10.4); MONOCYTES 12.5 % (2-11); NEUTROPHILS 51.5 % (40-80); PLATELET COUNT 255 10x3/uL (130-400); RBC 3.97 10x6/uL (4.00-5.40); RDW 15.3 % (11.5-14.5); WBC 3.8 10x3/uL (4.8-10.8)
[2019-10-24 05:39] LABS: ANION GAP 8.1 mmol/L (8-16); BILIRUBIN - TOTAL 0.45 mg/dL (0.2-1.3); CALCIUM 8.7 mg/dL (8.5-10.1); CARBON DIOXIDE 32.6 mmol/L (21.0-32.0); CREATININE - SERUM 0.9 mg/dL (0.6-1.3); MAGNESIUM - SERUM 1.9 mg/dL (1.8-2.4); PROTEIN - SERUM 6.5 g/dL (6.4-8.2)
[2019-10-24 05:40] LABS: POTASSIUM - SERUM 4.7 mmol/L (3.5-5.1)
[2019-10-24 08:16] VITALS: BP 127/67
--- NOTE | 2019-10-24 09:43 | NUR ---
AM MEDS GIVEN AT THIS TIME. ALSO GAVE NORCO FOR PAIN LEVEL OF 8/10. PT DENIES ANY NEEDS AT THIS TIME. PT A/O X4, RESP EVEN AND NONLABORED ON RA. MONITOR SHOWED SR WITH RATE OF 85. CALL LIGHT IN REACH, NAD NOTED, WILL CONTINUE TO MONITOR.
[2019-10-24 12:48] VITALS: BP 135/76
--- NOTE | 2019-10-24 12:55 | NUR ---
Nutrition Follow-up: Eating well. Reports last BM was 5-6 days ago; typically takes stool softener/laxative at home. Noted plans for KAREN. Diet: Diabetic PO intake: 100% x last 4 meals Wt: 173# (10/20) Labs noted: Glu 207, Alb 3.0 Meds noted: Miralax, Colace, Humulin, Lasix, Micro K, vitamin B12, Protonix, electrolyte protocol -Monitor wt; noted daily wts ordered. -RD following.
--- NOTE | 2019-10-24 15:57 | NUR ---
RT WRIST IV CAME OUT. NEW 22G IV STARTED TO LT HAND X2 STICKS.
--- NOTE | 2019-10-24 16:47 | NUR ---
BLOOD SUGAR OF 396, 10UNITS GIVEN PER S/S.
[2019-10-24 17:01] VITALS: BP 137/78
--- NOTE | 2019-10-24 19:00 | NUR ---
EVENING ROUNDS COMPLETE. PT LAYING IN BED, NO SIGNS OF DISTRESS. PT DENIES ANY NEEDS AT THIS TIME. CL IN REACH, BED IN LOWEST POSITION. AAOX4.
[2019-10-24 20:21] VITALS: BP 153/78
[2019-10-25 00:33] VITALS: BP 152/62
[2019-10-25 05:42] LABS: BASOPHILS 0.3 % (0-2); EOSINOPHILS 4.3 % (0-7); HEMATOCRIT 36.2 % (36.0-48.0); HEMOGLOBIN 10.7 g/dL (12-16); LYMPHOCYTES 29.6 % (15-50); MCH 27.2 pg (26.0-34.0); MCHC 29.6 g/dL (31.0-37.0); MCV 91.9 fL (80.0-100.0); MEAN PLATELET VOLUME 9.4 fL (7.4-10.4); NEUTROPHILS 55.8 % (40-80); PLATELET COUNT 250 10x3/uL (130-400); RBC 3.94 10x6/uL (4.00-5.40); RDW 15.1 % (11.5-14.5); WBC 3.5 10x3/uL (4.8-10.8)
[2019-10-25 05:48] VITALS: BP 108/45
[2019-10-25 06:20] LABS: ALBUMIN 3.1 g/dL (3.4-5.0); ANION GAP 8.4 mmol/L (8-16); BILIRUBIN - TOTAL 0.45 mg/dL (0.2-1.3); PHOSPHOROUS 4.2 mg/dL (2.5-4.9); POTASSIUM - SERUM 4.4 mmol/L (3.5-5.1); PROTEIN - SERUM 6.7 g/dL (6.4-8.2)
[2019-10-25 08:00] VITALS: BP 139/81
[2019-10-25 11:00] VITALS: BP 152/81
--- NOTE | 2019-10-25 11:02 | NUR ---
PT SAYS SHE IS HUNGRY AND CAN'T WAIT TO EAT. PT IS NPO FOR KAREN.
[2019-10-25 15:00] VITALS: BP 160/90
--- NOTE | 2019-10-25 19:35 | NUR ---
[facility] A/O X[facility]. PT REQUEST PRN PAIN MEDICATION FOR PAIN. RR EVEN AND UNLABORED. NO S/S OF DISTRESS. WILL CONTINUE TO MONITOR.
[2019-10-25 20:50] VITALS: BP 129/66
[2019-10-26 00:39] VITALS: BP 127/61
--- NOTE | 2019-10-26 03:16 | NUR ---
I have reviewed this patient and I concur with the Shift Assessment completed by the Licensed Practical Nurse today this shift.
[2019-10-26 05:13] VITALS: BP 131/72
[2019-10-26 06:43] LABS: ANION GAP 8.2 mmol/L (8-16); CALCIUM 8.7 mg/dL (8.5-10.1); CARBON DIOXIDE 33.1 mmol/L (21.0-32.0); CREATININE - SERUM 1.1 mg/dL (0.6-1.3); MAGNESIUM - SERUM 1.9 mg/dL (1.8-2.4); POTASSIUM - SERUM 4.3 mmol/L (3.5-5.1)
[2019-10-26 07:11] LABS: BASOPHILS 0.3 % (0-2); EOSINOPHILS 2.9 % (0-7); HEMATOCRIT 36.2 % (36.0-48.0); HEMOGLOBIN 10.6 g/dL (12-16); LYMPHOCYTES 31.1 % (15-50); MCHC 29.3 g/dL (31.0-37.0); MCV 92.3 fL (80.0-100.0); MEAN PLATELET VOLUME 9.8 fL (7.4-10.4); MONOCYTES 15.6 % (2-11); NEUTROPHILS 50.1 % (40-80); PLATELET COUNT 278 10x3/uL (130-400); RBC 3.92 10x6/uL (4.00-5.40); RDW 15.2 % (11.5-14.5); WBC 3.2 10x3/uL (4.8-10.8)
--- NOTE | 2019-10-26 07:16 | NUR ---
WALKING ROUNDS COMPLETE, PT LAYING IN BED, NO NEED OR PAIN VOICED, CALL LIGHT IN REACH, SR UP X2, WILL CONITNUE TO MONITOR
--- NOTE | 2019-10-26 08:30 | NUR ---
GAVE PT SCHEDULED MEDS, PT DENIES ANY OTHER NEEDS, CALLLIGHT IN REACH, SR UP X2, TELE BEING MONITORED, BED LOW AND LOCKED, WILL CONTINUE TO MONITOR
[2019-10-26 08:59] VITALS: BP 154/80
[2019-10-26 13:21] VITALS: BP 126/63
--- NOTE | 2019-10-26 19:30 | NUR ---
PT IN BED, AAO X 3, RESP EVEN AND UNLABORED, NO DISTRESS NOTED, CL IN REACH, SR UP X 2.
[2019-10-26 20:00] VITALS: BP 155/77
[2019-10-27] VITALS: BP 141/82
[2019-10-27 04:00] VITALS: BP 145/80
[2019-10-27 06:52] LABS: BASOPHILS 0.3 % (0-2); EOSINOPHILS 2.8 % (0-7); HEMATOCRIT 38.9 % (36.0-48.0); HEMOGLOBIN 11.5 g/dL (12-16); IMMATURE GRANULOCYTES 0.3 % (0-5); LYMPHOCYTES 27.7 % (15-50); MCH 27.1 pg (26.0-34.0); MCHC 29.6 g/dL (31.0-37.0); MCV 91.7 fL (80.0-100.0); MEAN PLATELET VOLUME 9.8 fL (7.4-10.4); NEUTROPHILS 55.9 % (40-80); PLATELET COUNT 300 10x3/uL (130-400); RBC 4.24 10x6/uL (4.00-5.40); RDW 15.2 % (11.5-14.5); WBC 3.5 10x3/uL (4.8-10.8)
[2019-10-27 07:16] LABS: ANION GAP 8.1 mmol/L (8-16); CALCIUM 8.9 mg/dL (8.5-10.1); CREATININE - SERUM 1.1 mg/dL (0.6-1.3); MAGNESIUM - SERUM 1.9 mg/dL (1.8-2.4); PHOSPHOROUS 4.3 mg/dL (2.5-4.9); POTASSIUM - SERUM 4.1 mmol/L (3.5-5.1)
[2019-10-27 08:00] VITALS: BP 143/73
--- NOTE | 2019-10-27 10:57 | NUR ---
PT RESTING WHEN FIRST ENTERED THIS AM. WOKE LATER, REQUESTED TO WALK AROUND THE FLOOR. PHYSICAL THERAPY CLEARED PT TO WALK. ADMINISTERED MEDICATIONS WITHOUT DIFFICULTY. CL IN REACH, SRX2.
[2019-10-27 11:00] VITALS: BP 146/81
--- NOTE | 2019-10-27 12:32 | NUR ---
I have reviewed this patient and I concur with the Shift Assessment completed by the Licensed Practical Nurse today this shift.
--- NOTE | 2019-10-27 12:45 | NUR ---
Nutrition Follow-up: Pt up with PT at time of visit this AM. Ate ~75% of breakfast. Noted plans for CABG on Thursday. Diet: Diabetic PO intake: 75-100% Wt: 230.4# (10/25); 229# (10/24); 249# (10/19) Labs noted: Glu 187 Meds noted: Miralax, Colace, vitamin B12, Lasix, Micro K, Protonix, Humulin -Monitor wt; noted daily wts ordered. -RD following.
--- NOTE | 2019-10-27 13:58 | NUR ---
PT ALERT AND OREINTED, LYING INBED WATCHING TELIVISION. IRRITATED D/T STILL BEING IN HOSPITAL BUT UNDERSTANDING OF THE REASONING. NO COMPLAINTS OR CONCERNS AT THIS TIME. CL IN REACH,S RX2.
[2019-10-27 15:00] VITALS: BP 163/73
--- NOTE | 2019-10-27 15:26 | TEE ---
PATIENT:MITCH BENNETT MEDICAL RECORD: [id number] LOCATION:D. D.211 AGE OF PATIENT: 63 ADMISSION DATE: 10/19/19 SEX: F REFERRING PHYSICIAN: INTERPRETING PHYSICIAN: MICHAEL STEPHENS MD TRANSESOPHAGEAL ECHOCARDIOGRAM Date: 10/25/19 KAREN CHARGE Y INDICATIONS: MR PREMEDICATIONS: PATIENT'S RESPONSE PROCEDURE DOPPLER MEASUREMENTS: LVIT LA PA 78 RA LVOT 78 RVOT 58 Asc. Ao 113 AV Gradient Peak 5.1 AV Mean 3.0 AV Area 1.6 MV Gradient Peak 7.0 MV Mean 3.1 MV Area INTERPRETATION: Doppler: 2-D: COLOR FLOW DOPPLER NORMAL SALINE STUDY: MISCELLANOUS: DIAGNOSIS: PLAN: Articulation Officer:3 Dr. Elean Sand Analyst: Christoph BOURGEOIS COMMENTS: DATE OF SERVICE: 10/25/2019 PROCEDURE: Transesophageal note DESCRIPTION OF PROCEDURE: After general sedation via TIVA via anesthesia, transesophageal Omniplane probe was placed into the distal esophagus and proximal stomach without difficulty. FINDINGS: Probable LVH. LV internal dimensions are normal. LV appear to be TRANSESOPHAGEAL ECHOCARDIOGRAM REPORT [id number] MITCH BENNETT mildly globally hypo with EF mildly reduced at 40% to 45%. Aortic valve is well visualized, tricuspid with good valve excursion. No AI is noted by color flow imaging. Left atrium probably dilated. Mitral valve shows no prolapse. It is probably maybe mild plus but no more than mild plus MR by color flow imaging. Right-sided chambers appear upper limits mildly dilated. Mild TR by color flow imaging. At the end of procedure, the transesophageal Omniplane probe was turned posterior and this showed minimal atherosclerotic debris in the descending aorta. TRANSINT:[id number] Voice Confirmation ID: [id number] DOCUMENT ID: [id number] at 1526 CC: [id number] DICTATION DATE: 10/25/19 1443 [employer] ARCHITECT: 10/26/19 0605 ADM IN [id number] [place] [address]
--- NOTE | 2019-10-27 17:22 | NUR ---
PT AWAKE AND ORIENTED, C/O WANTING A MILKSHAKE, A NEW TV CAHNNEL, AND VARIOUS OTHER MINOR UNOBTAINABLE REQUESTS. WILL ASSIST BEST I CAN. CL IN REACH, SRX2.
--- NOTE | 2019-10-27 19:34 | NUR ---
RECEIVED BEDSIDE REPORT. PATIENT IS ALERT AND ORIENTED, RESTING COMFORTABLY IN BED. RESPIRATIONS ARE EVEN AND UNLABORED. NO S/S OF DISTRESS. NO C/O PAIN. CALL LIGHT WITHIN REACH. WILL CPOC.
[2019-10-27 20:00] VITALS: BP 113/74
[2019-10-28] VITALS: BP 143/68
[2019-10-28 04:00] VITALS: BP 106/54
--- NOTE | 2019-10-28 04:05 | NUR ---
PATIENT FSBS 57. PATIENT GIVEN JUICE AND A SNACK. WILL CPOC.
[2019-10-28 06:23] LABS: ANION GAP 7.7 mmol/L (8-16); CALCIUM 8.7 mg/dL (8.5-10.1); CARBON DIOXIDE 34.2 mmol/L (21.0-32.0); CREATININE - SERUM 1.1 mg/dL (0.6-1.3); PHOSPHOROUS 4.6 mg/dL (2.5-4.9)
[2019-10-28 06:26] LABS: POTASSIUM - SERUM 4.9 mmol/L (3.5-5.1)
[2019-10-28 06:39] LABS: BASOPHILS 0.8 % (0-2); EOSINOPHILS 3.6 % (0-7); HEMATOCRIT 38.8 % (36.0-48.0); HEMOGLOBIN 11.6 g/dL (12-16); LYMPHOCYTES 28.5 % (15-50); MCH 27.2 pg (26.0-34.0); MCHC 29.9 g/dL (31.0-37.0); MCV 90.9 fL (80.0-100.0); NEUTROPHILS 51.1 % (40-80); PLATELET COUNT 251 10x3/uL (130-400); RBC 4.27 10x6/uL (4.00-5.40); RDW 15.2 % (11.5-14.5); WBC 3.9 10x3/uL (4.8-10.8)
[2019-10-28 08:00] VITALS: BP 144/77
--- NOTE | 2019-10-28 09:56 | NUR ---
PT AWAKE AND OREITNED WHEN I ENTERED ROOM. TOOK MEDICATIONS WITHOUT COMPLICATIONS. C/O NEEDING SOMETHING STRNOGER FOR PAIN. WILL CNT TO MONITOR. CL IN REACH, SRX2.
[2019-10-28 11:00] VITALS: BP 119/63
[2019-10-28 16:19] VITALS: BP 107/72
--- NOTE | 2019-10-28 18:32 | NUR ---
I have reviewed this patient and I concur with the Shift Assessment completed by the Licensed Practical Nurse today this shift.
--- NOTE | 2019-10-28 19:30 | NUR ---
PT IN BED, AAO X 2, RESP EVEN AND UNLABORED, NO DISTRESS NOTED. CL IN REACH, SR UP X 2.
[2019-10-28 20:15] VITALS: BP 114/63
[2019-10-29 00:32] VITALS: BP 103/41
[2019-10-29 05:06] LABS: BASOPHILS 0.5 % (0-2); EOSINOPHILS 3.4 % (0-7); HEMATOCRIT 38.3 % (36.0-48.0); HEMOGLOBIN 11.6 g/dL (12-16); LYMPHOCYTES 29.8 % (15-50); MCH 27.6 pg (26.0-34.0); MCHC 30.3 g/dL (31.0-37.0); MCV 91.2 fL (80.0-100.0); MONOCYTES 10.9 % (2-11); NEUTROPHILS 55.4 % (40-80); PLATELET COUNT 266 10x3/uL (130-400); RDW 15.2 % (11.5-14.5); WBC 4.1 10x3/uL (4.8-10.8)
[2019-10-29 05:33] LABS: CALCIUM 8.9 mg/dL (8.5-10.1); CREATININE - SERUM 1.8 mg/dL (0.6-1.3); MAGNESIUM - SERUM 2.2 mg/dL (1.8-2.4); PHOSPHOROUS 5.9 mg/dL (2.5-4.9)
[2019-10-29 06:03] VITALS: BP 110/64
[2019-10-29 08:30] VITALS: BP 122/59
--- NOTE | 2019-10-29 10:54 | NUR ---
PT AWAKE AND ORIETNED, C/O FOOT PAIN. NO OTHER COMPLAINTS OR CONCERNS AT THIS TIME. NO FAMILY AT BEDSIDE. CL IN REACH, SR2.
[2019-10-29 11:30] VITALS: BP 128/63
[2019-10-29 15:30] VITALS: BP 125/62
--- NOTE | 2019-10-29 16:30 | NUR ---
I have reviewed this patient and I concur with the Shift Assessment completed by the Licensed Practical Nurse today this shift.
--- NOTE | 2019-10-29 16:57 | NUR ---
PT AWAKE AND ORIENTED, LYING IN BED. SAT UP TO EAT SUPPER. C/O PAIN IN FOOT. PT IS OTHERWISE COMFORTABLE. CL IN REACH, SRX2.
--- NOTE | 2019-10-29 17:41 | NUR ---
PT 22G IV LH CAME OUT, REPLACED WITH A 20G RFA 2 STICKS. ADMINISTERED ONE TIME DOSE PAIN MEDICATION.
--- NOTE | 2019-10-29 19:30 | NUR ---
PT IN BED, EYES CLOSED, RESP EVEN AND UNLABORED. NO DISTRESS NOTED, CL IN REACH, SR UP X 2.
[2019-10-29 20:00] VITALS: BP 104/42
--- NOTE | 2019-10-30 00:26 | NUR ---
I have reviewed this patient and I concur with the Shift Assessment completed by the Licensed Practical Nurse today this shift.
[2019-10-30 04:00] VITALS: BP 138/63
[2019-10-30 04:50] LABS: BASOPHILS 0.5 % (0-2); EOSINOPHILS 3.6 % (0-7); HEMATOCRIT 39.1 % (36.0-48.0); HEMOGLOBIN 11.8 g/dL (12-16); LYMPHOCYTES 46.6 % (15-50); MCH 27.4 pg (26.0-34.0); MCHC 30.2 g/dL (31.0-37.0); MCV 90.9 fL (80.0-100.0); MEAN PLATELET VOLUME 9.7 fL (7.4-10.4); MONOCYTES 14.5 % (2-11); NEUTROPHILS 34.8 % (40-80); PLATELET COUNT 290 10x3/uL (130-400); RDW 15.3 % (11.5-14.5); WBC 3.9 10x3/uL (4.8-10.8)
[2019-10-30 05:04] LABS: INR 0.95 (0.85-1.17); PROTIME 12.7 SECONDS (11.6-15.0)
--- NOTE | 2019-10-30 05:08 | NUR ---
PT GIVEN 1/2 AMP OF D50 FOR BLOOD SUGAR OF 51.
[2019-10-30 05:22] LABS: ALBUMIN 3.2 g/dL (3.4-5.0); ANION GAP 8.4 mmol/L (8-16); BILIRUBIN - TOTAL 0.36 mg/dL (0.2-1.3); CALCIUM 8.9 mg/dL (8.5-10.1); CARBON DIOXIDE 35.1 mmol/L (21.0-32.0); CREATININE - SERUM 1.5 mg/dL (0.6-1.3); MAGNESIUM - SERUM 2.2 mg/dL (1.8-2.4); POTASSIUM - SERUM 3.5 mmol/L (3.5-5.1); PROTEIN - SERUM 7.4 g/dL (6.4-8.2); T4 THYROXIN - FREE 1.06 ng/dL (0.76-1.46); THYROID STIMULATING HORMONE 2.58 uIU/mL (0.36-3.74); URIC ACID 6.4 mg/dL (2.6-7.2)
[2019-10-30 06:17] LABS: APTT 28.6 SECONDS (22.8-39.4)
--- NOTE | 2019-10-30 06:36 | NUR ---
PT BLOOD SUGAR 94 AT THIS TIME.
[2019-10-30 09:38] VITALS: BP 132/72
--- NOTE | 2019-10-30 10:34 | NUR ---
PT VITAL CAPACITY 1.7L PT NIF -[id number]
--- NOTE | 2019-10-30 10:36 | NUR ---
PT AWAKE AND ORIENTED WHEN I ENTERED ROOM. TOOK MEDICAITONS WITHOUT COMPLICATIONS. C/O TOE PAIN, INFORMED PT I WOULD NEED A U/A TODAY AND TO LET ME KNOW NEXT TIME SHE URINATES IN THE COLLECTIONS CONTAINER. PT VERBALIZES UNDERSTANDING. CL IN REACH, SRX2.
[2019-10-30 13:30] VITALS: BP 103/81
--- NOTE | 2019-10-30 13:47 | NUR ---
I have reviewed this patient and I concur with the Shift Assessment completed by the Licensed Practical Nurse today this shift.
[2019-10-30 14:37] LABS: BILIRUBIN NEGATIVE (NEGATIVE); GLUCOSE NEGATIVE (NEGATIVE); KETONE NEGATIVE (NEGATIVE); NITRITE NEGATIVE (NEGATIVE); UROBILINOGEN NORMAL (NORMAL)
--- NOTE | 2019-10-30 18:24 | NUR ---
PT AWAKE AND ORIENTED, NO COMPLAITNS OR CONERNS AT THIS TIME. CL INR EACH, SRX2.
--- NOTE | 2019-10-30 19:45 | NUR ---
INITIAL ROUNDS AND ASSESSMENT COMPLETED. PT ALERT/ORIENTED. RESTING IN BED. ON/OFF TELEPHONE, EASILY DISTRACTED. IV TO RFA SALINE LOCKED. BEGAN PT TEACHING ON PRE PROCEDURE INTERVENTIONS THAT WILL OCCUR THIS SHIFT BEFORE SHE GOES FOR OPEN HEART IN AM. CPOC.
[2019-10-30 20:20] VITALS: BP 151/85
--- NOTE | 2019-10-30 21:28 | NUR ---
PT RESTING IN BED. LOUDLY CONVERSING WITH FRIEND ABOUT HOW HER SON HAS NOT COME TO VISIT HER AND SHE ABOUT TO HAVE SURGERY. ALSO STATES OTHER SON IS IN [place], SO HE CANNOT COME. THEN ARGUING WITH FRIEND ABOUT PICKING UP CATFISH FOR HER. INSTRUCTED PT THAT SHE IN NPO AFTER MIDNIGHT AND ONLY FULL LIQUIDS AT THIS TIME. FSBS 402, PT FEELS THIS IS INCORRECT, THAT THE MACHINE IS "MESSED UP". ORDERED STAT BLOOD GLUCOSE PER LAB. INSTRUCTED ON APPLYING BACTROBAN TO BOTH NARES. PT NOT HAPPY ABOUT THAT. PROVIDED CLIPPERS TO PT FOR HER TO START CLIPPING HER LEGS AND SHE LET STAFF KNOW THAT SHE IS TOTALLY UNABLE TO TO THAT TYPE OF ACTIVITY. PROVIDED PAIN PILL AND INFORMED PT THAT THIS NURSE WOULD RETURN SHORTLY TO START CLIPPING AND GETTING HER READY FOR A SHOWER.
[2019-10-31] VITALS (9 sets, daily range): BP systolic 122–150; BP diastolic 59–85
--- NOTE | 2019-10-31 03:45 | NUR ---
COMPLETE CLIPPING OF ALL REQUIRED HAIR AT THIS TIME. PT SHOWERED, HIBICLENS BATH GIVEN. LINENS CHANGED. ATTEMPTED X 2 TO START A NEW IV IN LEFT ARM SO THAT IV IN RIGHT ARM COULD BE REMOVED. PT REFUSED ANY FURTHER ATTEMPTS AFTER THE TWO UNSUCCESSFUL ATTEMPTS. PT STILL HAS PATENT IV TO RFA.
--- NOTE | 2019-10-31 04:00 | NUR ---
CALLED LAB ABOUT NEEDING PT'S BLOOD BANDS MOVED FROM LEFT ARM TO RIGHT ARM. LAB ARRIVED AND MOVED BANDS. THIS NURSE ALSO THOUGHT LAB HAD COLLECTED THE AM LABS ON THIS PATIENT SINCE SHE WAS DUE FOR SURGERY BY 0600.
--- NOTE | 2019-10-31 05:00 | NUR ---
IGNACIO/ANESTHESIA ON FLOOR, CONCERNED OVER PT'S BLOODSUGAR LEVELS REFLECTED IN LAB RESULTS. LAST DOCUMENTED BLOOD SUGAR HAD BEEN 451 PER LAB AND 405 PER GLUCOMETER. HAD SPOKEN WITH Rosa ABDALLA WITH CONCERNS OVER GIVING FULL DOSE OF INSULIN SINCE PATIENT WAS NPO FOR CABG IN AM AND SHE HAD BOTTOMED OUT TO 51 THE DAY BEFORE WHEN TREATED THE NIGHT BEFORE FOR A HIGH BLOOD SUGAR. AGREEMENT TO GIVE 12UNITS OF RAPID ACTING INSULIN, BUT TO HOLD LANTUS TONIGHT.
--- NOTE | 2019-10-31 05:15 | NUR ---
IGNACIO CONCERNED THAT THIS NURSE HAD NOT CONTACTED DR PETIT DURING THE NIGHT WITH THE ELEVATED BLOOD SUGAR. FSBS DONE NOW SHOWS PT IS 202. PER IGNACIO, PT MAY NOT HAVE SURGERY THIS AM WITH THAT BLOOD SUGAR, THAT LESS THAN 200 IS PREFERRED.
[2019-10-31 05:22] LABS: BASOPHILS 0.6 % (0-2); EOSINOPHILS 3.5 % (0-7); HEMATOCRIT 39.3 % (36.0-48.0); HEMOGLOBIN 11.5 g/dL (12-16); LYMPHOCYTES 35.6 % (15-50); MCH 26.7 pg (26.0-34.0); MCHC 29.3 g/dL (31.0-37.0); MCV 91.2 fL (80.0-100.0); MEAN PLATELET VOLUME 9.7 fL (7.4-10.4); MONOCYTES 15.5 % (2-11); NEUTROPHILS 44.8 % (40-80); PLATELET COUNT 292 10x3/uL (130-400); RBC 4.31 10x6/uL (4.00-5.40); RDW 15.1 % (11.5-14.5); WBC 3.4 10x3/uL (4.8-10.8)
[2019-10-31 05:26] LABS: ANION GAP -0.1 mmol/L (8-16); CALCIUM 8.8 mg/dL (8.5-10.1); CARBON DIOXIDE 36.3 mmol/L (21.0-32.0); CREATININE - SERUM 1.3 mg/dL (0.6-1.3); MAGNESIUM - SERUM 1.9 mg/dL (1.8-2.4); POTASSIUM - SERUM 3.2 mmol/L (3.5-5.1)
[2019-10-31 05:28] LABS: PHOSPHOROUS 3.1 mg/dL (2.5-4.9)
--- NOTE | 2019-10-31 05:30 | NUR ---
CALL FROM JACOB WITH ORDERS TO NOT PREOP PATIENT AT THIS TIME.
--- NOTE | 2019-10-31 08:18 | NUR ---
PT AWAKE AND ORIENTED, LYING IN BED. PT EXPRESSES CONCERNS OVER NEEDING A LSIDE I/V PLACEMENT AND NOT GOING TO SURGERY YET. SPOKE WITH ANASTESIA AND THEY STARTED TO KEEP PT NPO SHE WOULD LIKELY GO LATER. WILL CONT. TO MONITOR. CL IN REACH, SRX2.
--- NOTE | 2019-10-31 11:00 | NUR ---
RESUMED CARE OF PT AT THIS TIME AAOX3 RESP UNLABORED SKIN W/D COLOR WNL WILL CONTINUE TO MONITOR
--- NOTE | 2019-10-31 14:50 | NUR ---
RECEIVED TO CV08 VIA WHEELCHAIR. ASSISTED TO BED. AMBULATES WITH DIFFICULTY. SHIFT ASSESSMENT PERFORMED. ORIENTED TO ROOM, BATHROOM, CALL LIGHT, MONITORS, AND FALL RISK. CELL PHONE AND GLASSES GIVEN.
--- NOTE | 2019-10-31 15:11 | NUR ---
TEXT MESSAGE RE: PATIENT ARRIVAL SENT TO DR. MARISABEL SALTER'S NURSE.
--- NOTE | 2019-10-31 16:00 | NUR ---
RIGHT FOREARM SALINE LOCK PAINFUL TO FLUSING. D/C'D. ATTEMPTED X 2 AT LEFT FOREARM WITHOUT SUCCESS. CHARGE NURSE NOTIFIED.
--- NOTE | 2019-10-31 16:02 | NUR ---
VOICEMESSAGE LEFT FOR JOIE RE: PATIENT TRANSFER, ORDERS NEEDED.
--- NOTE | 2019-10-31 16:50 | NUR ---
DR. PETIT AND JOIE HERE. INFORMED OF PATIENT TRANSFER. STATED TO CONTACT DR. MORAN FOR ORDERS. DR. MORAN CALLED, VOICEMESSAGE LEFT.
--- NOTE | 2019-10-31 18:00 | NUR ---
IV SITED TO LEFT AC BY BELKIS GREY USING A 20GA CATHETER X 1 ATTEMPT. ATTEMPTED TO SITE AN 2ND TO RIGHT HAND WITHOUT SUCCESS.
--- NOTE | 2019-10-31 18:30 | NUR ---
NORCO 10 1 PO GIVEN FOR C/O WOUND PAIN 10/10 RIGHT 2ND TOE. FLEXERIL 10MG GIVEN PER REQUEST.
--- NOTE | 2019-10-31 18:37 | NUR ---
30 MINUTE RECHECK OF BLOOD SUGER =334. INSULIN DRIP CONTINUES AT 4u/HR.
--- NOTE | 2019-10-31 19:00 | NUR ---
SHIFT ASSESSMENT COMPLETED. PT CARE ASSUMED, MONITORS ON AND WORKING, PT AWAKE AND ALERT, SEE FLOW SHEET FOR FURTHER DETAILS. INSULIN DRIP INFUSING 4UNITS/HR.
--- NOTE | 2019-10-31 23:00 | NUR ---
PT FSBS DROPPING, INSULIN DRIP ON HOLD AT THIS TIME, WILL CONTINUE TO OBSERVE. CALL LIGHT WITHIN REACH, WILL CONTINUE TO OBSERVE.
[2019-11-01] VITALS: BP 129/61
[2019-11-01 02:00] VITALS: BP 99/44
--- NOTE | 2019-11-01 02:00 | NUR ---
SPOKE WITH DR PETIT CONCERNING PTS HYPOGLYCEMIC EPISODE. ANOTHER AMP OF D50 GIVEN, ALONG WITH PO JUICE PER MD. MONITORS ON AND WORKING, WILL CONTINUE TO OBSERVE.
[2019-11-01 03:00] VITALS: BP 102/54
--- NOTE | 2019-11-01 03:00 | NUR ---
NO CHANGES SEE FLOW SHEET FOR FURTHER DETAILS. WILL CONTINUE TO OBSERVE.
[2019-11-01 05:32] LABS: BASOPHILS 0.4 % (0-2); EOSINOPHILS 0.4 % (0-7); HEMATOCRIT 43.4 % (36.0-48.0); HEMOGLOBIN 12.9 g/dL (12-16); IMMATURE GRANULOCYTES 0.2 % (0-5); LYMPHOCYTES 14.1 % (15-50); MCH 27.7 pg (26.0-34.0); MCHC 29.7 g/dL (31.0-37.0); MCV 93.1 fL (80.0-100.0); MONOCYTES 12.6 % (2-11); NEUTROPHILS 72.3 % (40-80); PLATELET COUNT 197 10x3/uL (130-400); RBC 4.66 10x6/uL (4.00-5.40); RDW 15.5 % (11.5-14.5); WBC 4.5 10x3/uL (4.8-10.8)
[2019-11-01 05:44] LABS: ANION GAP 10.3 mmol/L (8-16); CALCIUM 9.5 mg/dL (8.5-10.1); CREATININE - SERUM 1.3 mg/dL (0.6-1.3)
[2019-11-01 05:45] LABS: MAGNESIUM - SERUM 2.4 mg/dL (1.8-2.4); PHOSPHOROUS 4.9 mg/dL (2.5-4.9); POTASSIUM - SERUM 5.3 mmol/L (3.5-5.1)
[2019-11-01 06:00] VITALS: BP 140/80
[2019-11-01 09:25] VITALS: BP 127/65
--- NOTE | 2019-11-01 11:13 | NUR ---
0700 REPORT RECIEVED AND CARE ASSUMED OF THE PATIENT.. SEE FLOW SHEET FOR SHIFT ASSESMENT FINDINGS.. 0800 DR LEE IN TO SEE PATIENT.. UPDATE GIVEN AND DR REVIEWING THE BS RESULTS.. 0805 FSBS DONE
--- NOTE | 2019-11-01 11:27 | NUR ---
Nutrition Follow-up: CABG not done 2/2 hyperglycemia. Moved to CVICU for insulin drip and tighter control of Glu prior to surgery. Diet: Diabetic PO intake: 93% avg x 7 meals Wt: 223# (10/31) Labs noted: Na 134, K+ 5.3, Glu 152, PO4 4.9 Meds noted: Humulin, Lantus, Humalog, Lasix, Miralax, Colace, vitamin B12, Protonix, electrolyte protocol -Encourage adherence to diet. -Monitor wt. -RD following.
--- NOTE | 2019-11-01 12:31 | NUR ---
0805 PT REFUSES INSULIN COVER LISPRO STATES SHE DOES NOT NEED IT THE LANTUS IS WHAT SHE TAKES AT HOME.. SHE STATES SHE HAS BEEN MANAGING HER DIABETIS SINCE SHE WAS 17 AND SHE KNOWS HER BODY, SHE ALSO STATES SHE WANTS TO GO HOME WE ARE NOT DOING ANYTHING FOR HER AND HER DR AT HOME DOES MORE .. [address] PEITT INFORMED OF PT WANTING TO LEAVE.. 919 EVELYN RN STATED THAT SHE SPOKEE WITH MARISABEL AND HE WANTS DR RAMIREZ TO BE NOTIFIED OF PATIENT DECISION.. [address] DR RAMIREZ IN UNIT AND UPDATE ONPATIENT GIVEN TO HIM HE SPOKE WITH PATIENT AND SHE STILL IS INSISTANT THAT SHE GO HOME .. DR RAMIREZ CALLED HIS OFFICE TO SCHEDULE PATIENT FOR FOLLOW UP PTCA IN 1 WEEK... 1030 SPOKE WITH CASE MANAGMENT AND INFORMED OF PATIENT WANTING TO LEAVE AMA.. CM STATED THAT IT WOULD BE PK TO SCHEDULE THE PTCA AND CALL IN THE PLAVIX DOSE TO THE PHARMACY FOR THE PATIENT.. [address] RAMIREZ OFFICE , AND PLAVIX CALLED IN TO [facility] IN [facility].. ALL INFORMATION GIVEN TO PATIENT AND SHE SIGNED THE AMA PAPERWORK.. SHE HAS CALLED HER RIDE TO COME GET HER.. STATING THAT IT WOULD BE 2 HOURS.. LUNCH SERVED TO HER SINCE IT WAS ON THE UNIT...
--- NOTE | 2019-11-01 13:01 | NUR ---
1251 PT TRANSPORTED TO THE ED WAITING AREA VIA WHEELCHAIR TO WAIT FOR HER RIDE HOME..
--- NOTE | 2019-11-01 16:26 | MORECARE ---
CASE MANAGEMENT DISCHARGE SUMMARY PATIENT: MITCH BENNETT UNIT: [id number] ADM DATE: 10/19/19 AGE: 63 : 59 SEX: F ROOM/BED: [facility] AUTHOR: ESTRELLA BLOUNT PHYSICIAN: REFERRING PHYSICIAN: RANDY SANTOS MD DATE OF SERVICE: 11/01/19 Discharge Plan Patient Name: MITCH BENNETT [facility] [facility] 1955 Planned Disposition: Anticipated Discharge Date: Discharge Date: 11/01/2019 Expected LOS: Initial Reviewer: [email or web address] Initial Review Date: 10/19/2019 Generated: 11/01/19 5:26 pm DCP- Discharge Planning Updated by [email or web address]: Alisa Wilburn on 10/24/19 8:[address] 10/23: AFVSS. Labs and chart reviewed. Appears as though a KAREN is planned for today to ascertain for degree of valvular dysfunction. Severe multivessel CAD noted, on plavix. IV Lasix Patient Name: MITCH BENNETT Page [id number] at 1626 All edits/amendments must be made on the electronic document DICTATION DATE: 11/01/191625 SILK WORKER: EMANUEL 11/01/191625 RPT#: [id number] DC DATE:11/01/19 STATUS: DIS IN [facility] [address] [place] [address] END OF REPORT
--- NOTE | 2019-11-01 16:34 | MORECARE ---
CASE MANAGEMENT DISCHARGE SUMMARY PATIENT: MITCH BENNETT UNIT: [id number] ADM DATE: 10/19/19 AGE: 63 : 59 SEX: F ROOM/BED: [facility] AUTHOR: ESTRELLA BLOUNT PHYSICIAN: REFERRING PHYSICIAN: RANDY SANTOS MD DATE OF SERVICE: 11/01/19 Discharge Plan Patient Name: MITCH BENNETT [facility] : 1955 Planned Disposition: Anticipated Discharge Date: Discharge Date: 11/01/2019 Expected LOS: Initial Reviewer: [email or web address] Initial Review Date: 10/19/2019 Generated: 11/01/19 5:34 pm Comments DCP- Discharge Planning Updated by [email or web address]: Jennifer Manrique on 11/01/19 3:[address] Patient needs CABG for severe CAD. Patient blood sugars was running high and wanted her to be on and insulin drip for better control before surgery. Patient started refusing insulin and FSBS. She stated that she was going home and had called family to come pick her up. AMA signed Patient is to follow up with Dr. Bernstein in a week. DCP- Discharge Planning Updated by [email or web address]: Alisa Wilburn on 10/24/19 8:[address] 10/23: AFVSS. Labs and chart reviewed. Appears as though a KAREN is planned for today to ascertain for degree of valvular dysfunction. Severe multivessel CAD noted, on plavix. IV Lasix Last DP export: 11/01/19 3:26 pm Patient Name: MITCH BENNETT Page [id number] at 1634 All edits/amendments must be made on the electronic document DICTATION DATE: 11/01/19 1634 [employer]: EMANUEL 11/01/19 1634 RPT#: [id number] DC DATE:11/01/19 STATUS: DIS IN [facility] [address] [place] [address] END OF REPORT
== END 2019-11-01 12:51 | disposition left against medical advice (07) | DRG 264 ==
LOC: D.ER 01:27 → EDSEX 01:27 → D.EDHOLD 02:02 → D.M2 02:02 → D.CVICU 10-31 14:50
PROVIDERS: Emergency Medicine; Family Medicine; Internal Medicine Cardiovascular Disease; ADMIT Emergency Medicine; ATTEND Emergency Medicine
PROC: 0JBQ0ZZ Excision of Right Foot Subcutaneous Tissue and Fascia, Open Approach (ICD-10-PCS; principal; 2019-10-19)
PROC: B2111ZZ Fluoroscopy of Multiple Coronary Arteries using Low Osmolar Contrast (ICD-10-PCS; 2019-10-20)
PROC: B2151ZZ Fluoroscopy of Left Heart using Low Osmolar Contrast (ICD-10-PCS; 2019-10-20)
PROC: 4A023N7 Measurement of Cardiac Sampling and Pressure, Left Heart, Percutaneous Approach (ICD-10-PCS; 2019-10-20)
DX: I21.4 Non-ST elevation (NSTEMI) myocardial infarction (principal); I50.43 Acute on chronic combined systolic (congestive) and diastolic (congestive) heart failure; I13.0 Hypertensive heart and chronic kidney disease with heart failure and stage 1 through stage 4 chronic kidney disease, or unspecified chronic kidney disease; N17.9 Acute kidney failure, unspecified; E11.22 Type 2 diabetes mellitus with diabetic chronic kidney disease; N18.9 Chronic kidney disease, unspecified; E11.65 Type 2 diabetes mellitus with hyperglycemia; I25.10 Atherosclerotic heart disease of native coronary artery without angina pectoris; K21.9 Gastro-esophageal reflux disease without esophagitis; D64.9 Anemia, unspecified; E11.621 Type 2 diabetes mellitus with foot ulcer; L97.512 Non-pressure chronic ulcer of other part of right foot with fat layer exposed; I25.5 Ischemic cardiomyopathy; I34.0 Nonrheumatic mitral (valve) insufficiency; E11.649 Type 2 diabetes mellitus with hypoglycemia without coma

== ENCOUNTER 2019-11-23 10:51 | Day surgery (SDC) | payer MEDICAID ==
[~2019-11-23] VITALS: Ht 165.1 cm; Wt 99.5 kg
--- NOTE | ~2019-11-23 | HEMODYNAMI ---
PATIENT:MITCH BENNETT MEDICAL RECORD: [id number] : 59 LOCATION:D.CAT ADMISSION DATE: 11/23/19 Generatedon:11/23/201913:39 Patient name: MITCH BENNETT Patient #: [id number] SSN: [id number] : 1955 Date of study: 11/23/2019 Page: Of Hemodynamic Procedure Report Patient Data Patient Demographics Procedure consent was obtained First Name: MITCH Gender: Female Last Name: DONALD : 1955 Patient #: [id number] Age: 63 year(s) Race: Black SSN: [id number] Additional ID: [id number] Contact details [address]: [address] [place] [address] [address] State: [place] City: [place] Zip code: [address] Past Medical History Allergies Allergen Reaction Date Comments Reported Other allergy 10/20/2019 NAPROXEN/STRAWBERRY Other allergy 10/25/2019 NAPROXEN, STRAWBERRY Other allergy 11/23/2019 naproxen, strawberry Admission Admission Data Admission Date: 11/23/2019 Admission Time: 10:51 Arrival Date: 11/23/2019 Arrival Time: 0:00 Admit Source: Other Insurance Payor: Medicaid [facility] #: [id number] Height (in.): 65 BSA: 2.06 (m2) Height (cm.): 165.1 BMI: 36.52 (kg/m2) Weight (lbs.): 219.45 Weight (kg.): 99.54 Lab Results Lab Result Date: 11/23/2019 Lab Result Time: 0:00 Biochemistry Name Units Result Min Max BUN mg/dl 26 --(----)-* 7 18 Creatinine mg/dl 1.7 --(----)-* 0.6 1.3 eGFR ml/min 32 *-(----)-- 90 120 NONAFRICAN CBC Name Units Result Min Max Hematocrit % 42.1 --(*---)-- 42 54 Hemoglobin g/dl 13 -*(----)-- 13.5 17.5 Procedure Procedure Types Cath Procedure Diagnostic Procedure Sedation Charges Moderate Sedation up to 15 minutes PCI Procedure Coronary Stent Coronary Stent Initial Coronary Stent Initial x2 Hemochron ACT Test Procedure Description Procedure Date Procedure Date: 11/23/2019 Procedure Start Time: 13:13 Procedure End Time: 13:38 Procedure Staff Name Function Spenser Bernstein MD Performing Physician Aurora Wolfe RT Monitor Fe Reyes RT Scrub Mohini Rapp RN Nurse Procedure Data Cath Procedure Fluoroscopy Diagnostic fluoroscopy Total fluoroscopy Time: 5.9 time: 5.9 min min Diagnostic fluoroscopy Total fluoroscopy dose: dose: 1014 mGy 1014 mGy Contrast Material Contrast Material Type Amount (ml) Isovue 370 81 Entry Location Entry Primary Successful Side Size Upsize Upsize Entry Closure Succes sful Closure Location (Fr) 1 (Fr) 2 (Fr) Remarks Device Remarks Femoral Right 6 Fr Exoseal artery Short Estimated blood loss: 10 ml Procedure Complications No complications Procedure Medications Medication Administration Route Dosage Oxygen etCO2 Nasal cannula 2 l/min Lidocaine 2% added to field 20 Heparin Flush Bag added to field 2 bags (1000units/500ml NS) 0.9% NaCl I.V. 100 ml/hr Versed I.V. 1 mg Fentanyl I.V. 50 mcg Versed I.V. 1 mg Fentanyl I.V. 50 mcg Heparin Bolus I.V. 9000 units Fentanyl I.V. 50 mcg Plavix P.O. 600 mg Hemodynamics Rest BSA: 2.06 (m2) HGB: 13 (g/dl) O2 Consumption: Estimated: 213.07 (ml/min) O2 Cons umption indexed: Estimated:103.43 (ml/min/m) Heart Rate: 94 (bpm) Snapshots Pre Cath Intra NCS Post Cath Vital Signs Time Heart Resp SPO2 etCO2 NIBP (mmHg) Rhythm Pain Sedation Rate (ipm) (%) (mmHg) Status Level (bpm) 12:59:52 92 21 93 21.7 Measuring NSR 0 (11) 10(A) , No pain 13:01:14 92 15 100 23.9 Time NSR 0 (11) 10(A) Exceeded , No pain 13:02:42 89 23 98 32.2 154/92(117) NSR 0 (11) 10(A) , No pain 13:06:52 87 18 99 27.7 137/97(118) NSR 0 (11) 10(A) , No pain 13:10:59 84 17 100 0 128/95(119) NSR 0 (11) 10(A) , No pain 13:15:09 84 18 100 41.2 129/82(106) NSR 0 (11) 9(A) , No pain 13:19:17 83 16 96 0 106/86(102) NSR 0 (11) 9(A) , No pain 13:24:59 83 15 94 12.7 111/89(106) NSR 0 (11) 9(A) , No pain 13:29:58 83 17 99 45.7 110/72(103) NSR 0 (11) 9(A) , No pain 13:34:00 85 18 100 45.7 123/75(113) NSR 0 (11) 10(A) , No pain 13:38:08 85 7 99 44.2 128/75(121) NSR 0 (11) 10(A) , No pain Medications Time Medication Route Dose Verified Delivered Reason Notes Effectiveness by by 13:01:14 Oxygen etCO2 2 Spenser Buffie used for Nasal l/min Amandeep Rapp RN procedure cannula 13:01:21 Lidocaine 2% added 20ml Spenser Spenser for local to vial Amandeep Bernstein MD anesthetic field 13:01:26 Heparin Flush added 2 Spenser Spenser used for Bag to bags Amandeep Bernstein MD procedure (1000units/500ml field NS) 13:01:34 0.9% NaCl I.V. 100 Spenser Buffie Per physician ml/hr Amandeep Rapp RN 13:09:46 Versed I.V. 1 mg Spenser Buffie for sedation Amandeep Rapp RN 13:09:51 Fentanyl I.V. 50 Spenser Buffie for sedation mcg Amandeep Rapp RN 13:14:21 Versed I.V. 1 mg Sepnser Buffie for sedation Amandeep Rapp RN 13:14:24 Fentanyl I.V. 50 Spenser Buffie for sedation mcg Amandeep Rapp RN 13:17:59 Heparin Bolus I.V. 9000 Spenser Buffie for verif ied units Amandeep Rapp RN anticoagulation with dr bernstein 13:27:48 Fentanyl I.V. 50 Spenser Mistyie for sedation mcg Amandeep Rapp RN 13:36:42 Plavix P.O. 600 Spenser Rajan for mg Amandeep Rapp RN antiplatelet therapy Procedure Log Time Note 12:34:16 Informed consent obtained and on chart 12:34:59 Diagnostic Cath Status : Elective 12:35:18 Arrival Date: 11/23/2019 12:00:00 AM 12:35:19 Admit Source: Other 12:35:22 Insurance Payor : Medicaid 12:45:14 Patient Height : 65 inches 12:45:19 Patient Weight : 219.45 lbs 12:46:02 Lab Result : Hemoglobin 13 g/dl 12:46:02 Lab Result : eGFR NONAFRICAN 32 ml/min 12:46:02 Lab Result : BUN 26 mg/dl 12:46:02 Lab Result : Creatinine 1.7 mg/dl 12:46:02 Lab Result : Hematocrit 42.1 % 12:46:22 Procedure Status PCI. 12:46:25 Fe Reyes RT(R) sent for patient. Start room use. 12:46:27 Time tracking: Regular hours (M-F 7:00 - 5:00) 12:46:31 Plan of Care:Hemodynamics will remain stable., Cardiac rhythm will remain stable., Comfort level will be maintained., Respiratory function will remain adequate., Patient/ family verbilizes understanding of procedure., Procedure tolerated without complication., Recovers from procedure without complications.. 12:46:39 H&P Date Dictated: 11/23/2019 New H&P dictated by physician.. 12:46:41 Pre-procedure instructions explained to patient. 12:46:41 Pre-op teaching completed and patient verbalized understanding. 12:46:45 Family in patients room. 12:46:47 Patient NPO since Midnight. 12:47:04 Patient allergic to Other allergynaproxen, strawberry 12:47:09 Alarms reviewed by R. N. 12:47:10 Sharps counted by scrub and verified by R.N. 12:47:12 Lab results completed and on chart. 12:47:16 Stress Test: no; N/A ? 12:47:27 Right groin area was prepped with chlora-prep and draped in sterile fashion 12:50:33 Patient received from Pre/Post Procedure Room to CCL 2 Alert and oriented. Tansferred to table in Supine position. 12:51:03 Warm blankets applied, and goldy hugger turned on for patient comfort. 12:51:03 Correct patient and procedure confirmed by team. 12:51:03 ECG and BP/O2 sat monitors applied to patient. 12:56:19 Is the patient allergic to Iodine/contrast media? No. 12:56:21 Is patient on blood thinner?No 12:56:47 Patient diabetic? Yes. 12:56:48 If diabetic: On Metformin? No 12:56:50 Previous problem with sedation/anesthesia? No ? 12:56:51 Snore? Yes 12:56:52 Sleep apnea? No 12:56:53 Deviated septum? No 12:56:53 Opens mouth fully? Yes 12:56:55 Sticks out tongue? Yes 12:57:00 Airway obstruction? Yes COPD 12:57:02 Dentures? No ? 12:57:05 Pre procedure: right dorsailis pedis pulse 1+ Palpable, but thready & weak; easily obliterated 12:57:07 Patient pain scale 0/10 ?. 12:57:16 IV patent on arrival in right hand with 0.9% NaCl at O. 12:57:21 Use device set CATH PACK 12:57:22 ACIST Syringe (47735) opened to sterile field. 12:57:22 ACIST Hand Control (86388) opened to sterile field. 12:57:23 ACIST Manifold (67330) opened to sterile field. 12:57:23 Medline Cath Pack ([id number]) opened to sterile field. 12:57:23 Bag Decanter (2002S) opened to sterile field. 12:57:24 EMERALD Guide Wire (502-950) opened to sterile field. 12:57:51 SHEATH 6FR [place] (AQN429) opened to sterile field. 12:57:51 BMW 300cm Straight Damon 2 wire ([id number]) opened to sterile field. 12:57:51 INFLATOR Merit BasixCompak (UH1976) opened to sterile field. 12:57:52 TUBING High Pressure Extension Tubing (Bernstein) ([id number]) opened to sterile field. 12:58:01 Vital chart was started 12:58:04 Baseline sample Acquired. 12:58:08 Rhythm: sinus rhythm 12:58:10 Full Disclosure recording started 13:01:14 Oxygen 2 l/min etCO2 Nasal cannula was administered by Mohini Rapp RN; used for procedure; Verbal order read back and verified. 13:01:21 Lidocaine 2% 20ml vial added to field was administered by Spenser Bernstein MD; for local anesthetic; Verbal order read back and verified. 13:01:26 Heparin Flush Bag (1000units/500ml NS) 2 bags added to field was administered by Spenser Bernstein MD; used for procedure; Verbal order read back and verified. 13:01:34 0.9% NaCl 100 ml/hr I.V. was administered by Mohini Rapp RN; Per physician; Verbal order read back and verified. 13:07:40 --------ALL STOP TIME OUT------ 13:07:40 Final Timeout: patient, procedure, and site verified with staff and physician. All members of the team are in agreement. 13:07:42 Right groin site verified by team. 13:07:46 Fire Safety Assessment: A--An alcohol-based skin anteseptic being used preoperatively., C--Open oxygen or nitrous oxide is being used., D--An ESU, laser, or fiber-optic light is being used. 13:07:49 Physical assessment completed. ASA score P 2 - A patient with mild systemic disease as per Spenser Bernstein MD. 13:07:53 3b) 30-44 Moderately reduced kidney function. 13:07:57 Maximum allowable contrast dose (3.7 X eGFR X 0.75)89 ml. 13:08:02 Sedation plan: IV Moderate Sedation Medication:Versed, Fentanyl 13:09:16 GUIDE 6FR XBLAD 3.5 catheter ([id number]) opened to sterile field. 13:09:21 Procedure started. 13:09:46 Versed 1 mg I.V. was administered by Mohini Rapp RN; for sedation; Verbal order read back and verified. 13:09:51 Fentanyl 50 mcg I.V. was administered by Mohini Rapp RN; for sedation; Verbal order read back and verified. 13:13:38 Local anesthetic to right femoral artery with Lidocaine 2% by Spenser Bernstein MD.INITIAL ACCESS ONLY 13:14:16 A 6 Fr Short sheath was inserted into the Right Femoral artery 13:14:21 Versed 1 mg I.V. was administered by Mohini Rapp RN; for sedation; Verbal order read back and verified. 13:14:24 Fentanyl 50 mcg I.V. was administered by Mohini Rapp RN; for sedation; Verbal order read back and verified. 13:15:09 6 Fr XBLAD 3.5 guide catheter was inserted over the wire 13:15:30 Proceeding to intervention. 13:17:19 Pre PCI Site: Elim Ira Circ has 90% stenosis. 13:17:57 BMW 300 wire advanced. 13:17:59 Heparin Bolus 9000 units I.V. was administered by Mohini Rapp RN; for anticoagulation; verified with dr bernstein Verbal order read back and verified. 13:18:06 Wire advanced across lesion. 13:21:18 Place stent Inflation Number: 1 A TEDDY OTW 2.25 x 26 stent ([id number]) was prepped and advanced across the Mid CX 90. The stent was deployed at 11 AGNES for 0:00 (min:sec) . 13:21:48 Wire redirected to LAD. 13:23:50 Stent catheter was removed intact over wire. 13:27:09 Pre PCI Site: Elim Ira mLAD has 80% stenosis. 13:27:14 Wire advanced across lesion. 13:27:48 Fentanyl 50 mcg I.V. was administered by Mohini Rapp RN; for sedation; Verbal order read back and verified. 13:29:23 Place stent Inflation Number: 1 A TEDDY OTW 3.0 x 22 stent ([id number]) was prepped and advanced across the Mid LAD 80. The stent was deployed at 12 AGNES for 0:00 (min:sec) . 13:30:39 Stent catheter was removed intact over wire. 13:30:40 Wire removed. 13:30:40 Guide catheter removed. 13:30:50 EXOSEAL 6Fr (EX600) opened to sterile field. 13:31:03 Sheath removed intact; hemostasis achieved with Exoseal to the Right Femoral artery. 13:31:10 Fluoroscopy time 05.90 minutes. 13:31:14 Fluoroscopy dose: 1014 mGy 13:31:14 Flurop Dose total: 1014 13:31:26 Dose Area Product 72474 mGy/cm. 13:31:51 Contrast amount:Isovue 370 81ml. 13:31:54 Maximum allowable dose exceeded? No. 13:31:55 Sharps counted by scrub and verified by R.N. 13:32:01 Post-op/insertion site Right Femoral artery dressed using a 4 x 4 and Tegaderm. 13:32:03 Procedure ended.(Physican Out) 13:32:24 Post right femoral artery:stable, soft, clean and dry 13:32:27 Post Procedure Pulses reassessed and unchanged 13:32:30 Post procedure: right dorsailis pedis pulse 2+ Normal; easily identifiable; not easily obliterated. 13:32:33 Post-procedure physical assessment completed. ASA score P 2 - A patient with mild systemic disease as per Spenser Bernstein MD. 13:32:37 Post procedure rhythm: unchanged. 13:32:41 Estimated blood loss: 10 ml 13:32:42 Post procedure instruction explained to patient.Patient verbalizes understanding. 13:32:42 Patient needs reinforcement of post procedure teaching. 13:33:16 Procedure type changed to Cath procedure, Diagnostic procedure, Sedation Charges, Moderate Sedation up to 15 minutes, PCI procedure, Coronary Stent, Coronary Stent Initial, Coronary Stent Initial x2, Hemochron ACT Test 13:34:37 Procedure and supply charges have been captured, reviewed, submitted and are correct. 13:34:41 Procedure Complication : No complications 13:34:46 [facility] Findings: MVD- PCI performed (see procedure note) 13:34:48 Operative report dictated upon procedure completion. 13:34:49 See physician's report for complete and final results. 13:34:51 Report given to Pre/Post Procedure Room. 13:34:54 Patient transfered to Pre/Post Procedure Room with Stretcher. 13:34:59 ACC-PCI Only Patient was given prescriptions, or instructed by Spenser Bernstein MD to start/continue the following medications upon discharge: Plavix 13:36:42 Plavix 600 mg P.O. was administered by Mohini Rapp RN; for antiplatelet therapy; Verbal order read back and verified. 13:36:56 ACT drawn and resulted at 309 seconds. (normal therapeutic range 180-240 seconds). 13:38:04 Vital chart was stopped 13:38:08 Procedure ended. 13:38:08 Full Disclosure recording stopped 13:38:25 End room use (Document Last) 13:39:17 End room use (Document Last) 13:39:31 End room use (Document Last) Intervention Summary Intervention Notes Time ActionType Lesion and Equipment Action# Pressure Duration Attributes Used 13:21:18 Place stent Mid CX TEDDY OTW 2.25 1 11 00:00 x 26 stent ([id number]) 13:29:23 Place stent Mid LAD TEDDY OTW 3.0 1 12 00:00 x 22 stent ([id number]) Device Usage Item Name Manufacture Quantity Catalog Hospital Part Current Mini [facility] Lot# / Number Charge Number Stock Stock Serial# Code ACIST Syringe Acist 1 83154 550119 437787 202577 20 (64609) Medical Systems Inc ACIST Hand Acist 1 59469 697433 824414 648907 5 Control Medical (83499) Systems Inc ACIST Acist 1 54666 424772 248032 375848 5 Manifold Medical (02092) Systems Inc Medline Cath Medline 1 [id number] 654747 09829 341462 5 Pack ([id number]) Bag Decanter Microtek 1 2001S 668298 27958 829928 5 (2001S) Medical Inc. EMERALD Guide Cardinal 1 502-455 478544 316589 691350 5 Wire Health (502-455) SHEATH 6FR Terumo 1 UUZ210 458433 386673 309247 40 [place] (LHU683) BMW 300cm Nguyen 1 0679808 358973 351433 822403 5 Straight Vascular Damon 2 wire (1148227) INFLATOR Merit 1 VC1825 543653 709719 081281 15 Merit Medical BasixCompak (WL2205) TUBING High Merit 1 [id number] 082768 13357 234051 10 Pressure Medical Extension Tubing (Bernstein) (HY5191C) GUIDE 6FR Cardinal 1 [id number] 252350 647457 447769 10 XBLAD 3.5 Health catheter (35050768) TEDDY OTW 2.25 Medtronic 1 [id number] 652831 95513 787215 5 [id number] x 26 stent ([id number]) TEDDY OTW 3.0 Medtronic 1 [id number] 845568 7198714 000150 5 [id number] x 22 stent ([id number]) EXOSEAL 6Fr Cardinal 1 EX600 040087 580502 665491 10 (EX600) Health Signature Audit [place] Stage Time Signature Unsigned Intra-Procedure 11/23/2019 Aurora Wolfe 1:39:17 PM RT(R) Intra-Procedure 11/23/2019 Mohini Rapp RN 1:39:31 PM Intra-Procedure 11/23/2019 Spenser Bernstein MD 1:39:48 PM Signatures Performing Physician : Signature : Spenser Bernstein MD Date : Time : Monitor : Auroar Wolfe Signature : RT Date : Time : Nurse : Mohini Rapp RN Signature : Date : Time : [address] [place] [address]
[~2019-11-23 10:51] MED LIST: COZAAR50 MG PO; CYCLOBENZAPRINE10 MG PO; HUMULIN N100 U/ML; HYDROCODON-ACE1 EA10 PO; KEFLEX500 MG PO; LASIX40 MG PO; LEVEMIR FL100 UNIT/1 SC; LIPITOR20 MG PO; PLAVIX75 MG PO; POTASSIUM CHLO10 ME1 PO
[2019-11-23] MEDS ORDERED: BACTRIM DS TAB1 EAC1 PO (11:21)
[2019-11-23] MEDS ORDERED: CYANOCOBAL1000 MCG/4 SC (11:26)
[2019-11-23] MEDS ORDERED: BAYER CHEWABLE81 MG PO (11:32)
[2019-11-23 11:42] VITALS: BP 136/67; Ht 165.1 cm; Wt 99.5 kg
[2019-11-23 12:25] LABS: BASOPHILS 0.3 % (0-2); HEMATOCRIT 42.1 % (36.0-48.0); IMMATURE GRANULOCYTES 0.3 % (0-5); LYMPHOCYTES 34.2 % (15-50); MCH 27.7 pg (26.0-34.0); MCHC 30.9 g/dL (31.0-37.0); MCV 89.8 fL (80.0-100.0); MEAN PLATELET VOLUME 10.3 fL (7.4-10.4); MONOCYTES 12.3 % (2-11); NEUTROPHILS 49.9 % (40-80); PLATELET COUNT 194 10x3/uL (130-400); RBC 4.69 10x6/uL (4.00-5.40); RDW 14.7 % (11.5-14.5); WBC 3.3 10x3/uL (4.8-10.8)
[2019-11-23 12:32] LABS: ANION GAP 12.2 mmol/L (8-16); CALCIUM 9.2 mg/dL (8.5-10.1); CREATININE - SERUM 1.7 mg/dL (0.6-1.3); POTASSIUM - SERUM 4.2 mmol/L (3.5-5.1)
--- NOTE | 2019-11-23 13:55 | NUR ---
PT REC'D TO ROOM 5 VIA STRETCHER FROM EDUCATIONAL ASSISTANT. MONITORS ESTAB, NO FAMILY AT BS. SEE ABSORPTION AND ADSORPTION ENGINEER, ALARMS ON AND C/L IN REACH.
--- NOTE | 2019-11-23 14:10 | NUR ---
R GROIN SITE SOFT, NO S/S BLEEDING OR HEMATOMA. PULSES PALP. VSS. PT DENIES PAIN OR NEEDS. ALARMS ON AND C/L IN REACH.
--- NOTE | 2019-11-23 14:30 | NUR ---
PLAVIX PRESCRIPTION CALLED IN TO [facility] IN [place] PER PT REQUEST.
--- NOTE | 2019-11-23 14:40 | NUR ---
R GROIN SITE SOFT, NO S/S BLEEDING OR HEMATOMA. PULSES PALP. PT C/O OF BURNING AT TOP OF THROAT - SIPS OF SRITE GIVEN, PT REPORTS RELIEF. VSS. WILL CONT CLOSE MONITORING. ALARMS ON AND C/L IN REACH.
--- NOTE | 2019-11-23 14:55 | NUR ---
R GROIN SITE SOFT, NO S/S BLEEDING OR HEMATOMA. PT ASSISTED WITH JELLO AND PUDDING, NO C/O HEART BURN OR PAIN. VSS. ALARMS ON AND C/L IN REACH.
--- NOTE | 2019-11-23 15:30 | NUR ---
R GROIN SITE SOFT, NO S/S BLEEDING OR HEMATOMA. PULSES PALP. PT RESTING QUIETLY, DENIES PAIN OR NEEDS. ALARMS ON AND C/L IN REACH.
--- NOTE | 2019-11-23 16:20 | NUR ---
PT C/O NAUSEA. ONE TIME DOSE ZOFRAN GIVEN PER MD ORDER - SEE EMAR. PT REPORTED RELIEF WITHIN 10MIN, ABLE TO START ELEVATING HOB GRADUALLY. R GROIN SITE SOFT, NO S/S BLEEDING OR HEMATOMA. C/L IN REACH.
--- NOTE | 2019-11-23 16:45 | NUR ---
PT REQUESTS SANDWICH, NO C/O NAUSEA NOW. FRENCH PROVIDED, VSS. R GROIN SITE C/D/I.
--- NOTE | 2019-11-23 17:15 | NUR ---
PT ATE ALL OF SANDWICH, NO N/V. R GROIN SITE SOFT, C/D/I. C/L IN REACH.
--- NOTE | 2019-11-23 17:24 | NUR ---
PIV D/C'D INTACT, DSG APPLIED. PT ASSISTED UP TO GET DRESSED AND GO TO BR.
--- NOTE | 2019-11-23 17:35 | NUR ---
ALL DISCHARGE INSTRUCTIONS REVIEW WITH PT - INCLUDING RESTRICTIONS, IMPORTANCE OF TAKING PLAVIX, AND F/U APPT. PT VERBALIZES UNDERSTANDING.
--- NOTE | 2019-11-23 18:00 | NUR ---
PT D/C'D VIA TO [facility]. PT HAS HER PURSE, WALKER, AND ALL PAPERWORK.
== END 2019-11-23 18:00 | disposition home or self-care (01) ==
LOC: D.CATH 10:51
PROVIDERS: ATTEND Internal Medicine Cardiovascular Disease
DX: I25.119 Atherosclerotic heart disease of native coronary artery with unspecified angina pectoris (principal); I21.4 Non-ST elevation (NSTEMI) myocardial infarction; I25.10 Atherosclerotic heart disease of native coronary artery without angina pectoris; I10 Essential (primary) hypertension; I25.2 Old myocardial infarction; I50.9 Heart failure, unspecified; K21.9 Gastro-esophageal reflux disease without esophagitis; E11.9 Type 2 diabetes mellitus without complications; Z95.5 Presence of coronary angioplasty implant and graft; I63.9 Cerebral infarction, unspecified